=== PATIENT | male | born 1940 | race Caucasian/White ===

== ENCOUNTER → 2018-01-15 | Day surgery (SDC) | payer MEDICARE, BC ==
[2018-01-09 15:25] VITALS: BMI 29.4
[~2018-01-15] MED LIST: HYDROCHLOROTHIAZIDE PO SCH; LIDOCAINE 1% INJ 10MG/ML (20 ML MDV) ONE; METOPROLOL TARTRATE 25 MG TAB PO SCH; PROPOFOL 10 MG/ML 20 ML VIAL IV ONE; RIVAROXABAN 20 MG TAB PO SCH; RIVASTIGMINE TARTRATE 4.5 MG PO SCH; SODIUM CHLORIDE 0.9% 1,000 ML IV SCH; SODIUM CHLORIDE 0.9% 250 ML IV ONE; TAMSULOSIN 0.4 MG CAP.ER.24H PO SCH; VALSARTAN PO SCH; [UNRECOGNIZED DRUG - OTHER] PO SCH; ePHEDrine SULFATE/0.9% NACL/PF 50 MG/5 ML SYRINGE IV ONE
[2018-01-15 07:05] VITALS: TEMP 98.2
[2018-01-15 07:24] VITALS: RESP 16
[2018-01-15 07:29] LABS: Anion Gap 10 mmol/L; Blood Urea Nitrogen 21 mg/dL (9-20); Calcium 9.9 mg/dL (8.4-10.2); Carbon Dioxide 25 mmol/L (22-30); Chloride 105 mmol/L (98-107); Glucose 130 mg/dL (74-99); Potassium 4.4 mmol/L (3.5-5.1); Sodium 140 mmol/L (137-145)
--- NOTE | 2018-01-15 08:03 | ECHOT ---
TRANSESOPHAGEAL ECHOCARDIOGRAM INDICATION: Evaluation of the left atrial appendage. PROCEDURE: After explaining the procedure to the patient, its risks and complications, his blood pressure, heart rate, O2 saturation was monitored. The throat was sprayed with Cetacaine. He received sedation per Anesthesia Department. The probe was introduced into the esophagus without difficulty. Images were obtained. Following that, the probe was removed. There was no immediate complication. FINDINGS: Left atrial size is mildly dilated. Left atrial appendage is normal, left ventricular size and systolic function normal. The aortic valve, mitral valve and tricuspid valve is normal. Descending thoracic aorta appears to be normal. No pericardial effusion was noted. Doppler pulse were obtained and revealed moderate mitral with mild tricuspid regurgitation, mild aortic regurgitation. There was no shunting across the interatrial septum. Impression 1. Normal KATARZYNA 2. Normal LV systolic function 3. Moderate MR, mild TR and AI 4. No shunting. MMODL / IJN: [id number] / MTDD
--- NOTE | 2018-01-15 08:09 | CE ---
CARDIAC ELECTROPHYSIOLOGY REPORT INDICATION: Atrial fibrillation. PROCEDURE: After explaining the procedure to the patient, its risks and the complications, blood pressure, heart rate with suture, O2 saturation was monitored. After explaining the procedure to the patient and obtaining sedated state and performing transesophageal echocardiogram. a synchronized biphasic cardioversion using 200 joules was performed with catholic of normal sinus rhythm. There was no immediate complication. ALIDA / JOSÉN: [id number] /
[2018-01-15 09:17] VITALS: BP 115/66; PULSE 63
--- NOTE | 2018-01-16 08:32 | ECHOT ---
TRANSESOPHAGEAL ECHOCARDIOGRAM ADDENDUM: IMPRESSION: 1. Dilated left atrium with normal appearance left atrial appendage. 2. Normal left ventricular size and systolic function. 3. Moderate mitral with mild tricuspid and aortic regurgitation. 4. No shunting across the interatrial septum. 5. Normal appearance of descending thoracic aorta. 6. No pericardial effusion. MMODL / IJN: [id number] /
== END | disposition home or self-care (01) ==
LOC: CATHCVL 06:25
PROVIDERS: ATTEND Internal Medicine Interventional Cardiology
DX: I48.1 Persistent atrial fibrillation (principal); I08.0 Rheumatic disorders of both mitral and aortic valves; I10 Essential (primary) hypertension; E78.2 Mixed hyperlipidemia; Z79.01 Long term (current) use of anticoagulants; Z79.899 Other long term (current) drug therapy
CPT/HCPCS: 93312; 93320; 93325; 92960; 80048; J2001; J2704

== ENCOUNTER 2018-12-04 05:59 | Day surgery (SDC) | payer MEDICARE, BC ==
[2018-11-30 12:47] VITALS: BMI 29.4
[2018-12-04] MEDS ORDERED: SODIUM CHLORIDE 0.9% 500 ML 500 ML IV ONE (07:09)
[2018-12-04] MEDS ORDERED: PROPOFOL 10 MG/ML 20 ML VIAL IV ONE (07:10)
[2018-12-04] MEDS ORDERED: BENZOCAINE SPRAY 1 CAN MUCOUS MEM ONE (07:14)
[2018-12-04] MEDS ORDERED: SODIUM CHLORIDE 0.9% 1,000 ML IV SCH (07:30)
[2018-12-04 07:39] VITALS: RESP 16
--- NOTE | 2018-12-04 07:45 | CE ---
CARDIAC ELECTROPHYSIOLOGY REPORT CARDIOVERSION PROCEDURE NOTE: INDICATION: Atrial fibrillation. PROCEDURE: After explaining the procedure to the patient, its risks and the complications, after obtaining sedated state and performing transesophageal echocardiogram, a synchronized biphasic cardioversion using 200 joules was performed with zoroastrian of normal sinus rhythm. There was no immediate complication. ALIDA / LIZ: [id number] /
--- NOTE | 2018-12-04 07:45 | ECHOT ---
TRANSESOPHAGEAL ECHOCARDIOGRAM INDICATION: Atrial fibrillation and evaluation left atrial appendage. PROCEDURE: After explaining the procedure to the patient, its risks and complications, his blood pressure, heart rate, O2 saturation was monitored. The throat was sprayed with Cetacaine. He received sedation per Anesthesia Department. The probe was introduced esophagus without difficulty. Images were obtained. Following that, the probe was removed. There was no immediate complication. FINDINGS: The left atrial size is mildly dilated. Left atrial appendage is normal size, systolic function is normal. The aortic valve revealed mild fibrocalcific change with aortic cusp with preserved opening. Mitral valve appears to be normal. Tricuspid valve is normal. Descending thoracic aorta appears to be normal. Contrast bubble study revealed no evidence of shunting across the interatrial septum. No pericardial effusion was noted. Doppler pulse wave and color Doppler obtained revealed moderate mitral with mild tricuspid with trace aortic and pulmonic regurgitation. There was no shunting across the interatrial septum. CONCLUSION: 1. Dilated left atrium, normal appearance left atrial appendage. 2. Normal left ventricular size and systolic function. 3. Moderate mitral and mild tricuspid regurgitation. 4. Trace aortic and pulmonic regurgitation. 5. No shunting across the interatrial septum. 6. Normal appearance of the descending thoracic aorta. MMODL / IJN: [id number] /
[2018-12-04] MEDS: SODIUM CHLORIDE 0.9% 1,000 ML IV SCH ×2 (07:49→07:58)
[2018-12-04] MEDS ORDERED: [UNRECOGNIZED DRUG - OTHER] PO SCH (09:00)
[2018-12-04] MEDS ORDERED: TAMSULOSIN 0.4 MG CAP.ER.24H PO SCH (09:00)
[2018-12-04] MEDS ORDERED: FLECAINIDE 50 MG TAB PO SCH (09:00)
[2018-12-04] MEDS ORDERED: HYDROCHLOROTHIAZIDE PO SCH (09:00)
[2018-12-04] MEDS ORDERED: VALSARTAN PO SCH (09:00)
[2018-12-04] MEDS ORDERED: RIVASTIGMINE TARTRATE 4.5 MG PO SCH (09:00)
[2018-12-04 10:03] VITALS: BP 127/77; PULSE 68
[2018-12-04] MEDS ORDERED: RIVAROXABAN 20 MG TAB PO SCH (21:00)
[2018-12-04] MEDS ORDERED: METOPROLOL TARTRATE 25 MG TAB PO SCH (21:00)
== END 2018-12-04 09:50 | disposition home or self-care (01) ==
LOC: CATHCVL 05:59
PROVIDERS: ATTEND Internal Medicine Interventional Cardiology
DX: I48.1 Persistent atrial fibrillation (principal); I10 Essential (primary) hypertension; E78.2 Mixed hyperlipidemia; I08.0 Rheumatic disorders of both mitral and aortic valves; Z85.828 Personal history of other malignant neoplasm of skin; N42.9 Disorder of prostate, unspecified; G30.9 Alzheimer's disease, unspecified; Z79.01 Long term (current) use of anticoagulants; Z79.899 Other long term (current) drug therapy
CPT/HCPCS: 93312; 93320; 93325; 92960; J2704; 93005

== ENCOUNTER → 2020-01-28 | Outpatient (CLI) | payer MEDICARE, BC ==
[2020-01-28 14:08] LABS: HGB 14.3 gm/dL (13.0-17.5); MCH 32.5 pg (25.0-35.0); MCHC 33.4 g/dL (31.0-37.0); MCV 97.3 fL (80.0-100.0); Mean Platelet Volume 7.3; Platelet Count 172 k/uL (150-450); RBC 4.42 m/uL (4.30-5.90); RDW 12.5 % (11.5-15.5); WBC 5.8 k/uL (3.8-10.6)
[2020-01-28 14:12] LABS: Magnesium 1.8 mg/dL (1.6-2.3)
== END | disposition home or self-care (01) ==
LOC: LABPAT 11:44
PROVIDERS: ATTEND Internal Medicine Interventional Cardiology
DX: Z01.818 Encounter for other preprocedural examination (principal); I48.21 Permanent atrial fibrillation
CPT/HCPCS: 36415; 82565; 83735; 84520; 85027

== ENCOUNTER 2020-02-03 06:02 | Day surgery (SDC) | payer MEDICARE, BC ==
[2020-01-30 09:28] VITALS: BMI 29.4
[~2020-02-03 06:02] MED LIST changes: -HYDROCHLOROTHIAZIDE PO SCH; +LACTATED RINGERS 1,000 ML IV SCH; -LIDOCAINE 1% INJ 10MG/ML (20 ML MDV) ONE; -METOPROLOL TARTRATE 25 MG TAB PO SCH; -PROPOFOL 10 MG/ML 20 ML VIAL IV ONE; -RIVAROXABAN 20 MG TAB PO SCH; -RIVASTIGMINE TARTRATE 4.5 MG PO SCH; -SODIUM CHLORIDE 0.9% 250 ML IV ONE; -TAMSULOSIN 0.4 MG CAP.ER.24H PO SCH; -VALSARTAN PO SCH; -[UNRECOGNIZED DRUG - OTHER] PO SCH; -ePHEDrine SULFATE/0.9% NACL/PF 50 MG/5 ML SYRINGE IV ONE
[2020-02-03 06:32] VITALS: RESP 16; TEMP 98.1
[2020-02-03 06:53] LABS: Potassium 3.8 mmol/L (3.5-5.1)
[2020-02-03] MEDS ORDERED: PROPOFOL 10 MG/ML 20 ML VIAL IV ONE (07:20)
[2020-02-03] MEDS ORDERED: IV FLUID CONTINUATION 1,000 ML IV ONE (07:27)
[2020-02-03] MEDS ORDERED: SODIUM CHLORIDE 0.9% 1,000 ML IV SCH (07:45)
[2020-02-03] MEDS ORDERED: TAMSULOSIN 0.4 MG CAP.ER.24H PO SCH (09:00)
[2020-02-03] MEDS ORDERED: RIVASTIGMINE TARTRATE 4.5 MG PO SCH (09:00)
[2020-02-03] MEDS ORDERED: ATORVASTATIN 10 MG TAB PO SCH (09:00)
[2020-02-03] MEDS ORDERED: FUROSEMIDE 20 MG TAB PO SCH (09:00)
[2020-02-03] MEDS ORDERED: FLECAINIDE 50 MG TAB PO SCH (09:00)
[2020-02-03 09:16] VITALS: BP 115/60; PULSE 59
--- NOTE | 2020-02-03 09:59 | ECHOT ---
TRANSESOPHAGEAL ECHOCARDIOGRAM INDICATIONS: Evaluation left atrial appendage. PROCEDURE: After explaining the procedure to the patient its risks and the complications, his blood pressure, heart rate, O2 saturation was monitored. The throat was sprayed with Cetacaine he received sedation per the anesthesia department. The probe was introduced esophagus without difficulties. Images were obtained. Following that, the probe was removed there was no immediate complication. FINDINGS: Left atrial size is mildly dilated. The left atrial appendage is normal size, systolic function normal. The aortic valve appears to be normal. The mitral valve revealed mild thickening of the mitral valve leaflets. Tricuspid valve is normal. Descending thoracic aorta revealed no evidence of significant atherosclerotic changes. No pericardial effusion was noted. Contrast bubble study revealed no shunting across the interatrial septum. Doppler pulse wave and color Doppler obtained revealed moderate mitral with mild tricuspid regurgitation. There was no shunting by color Doppler study. CONCLUSION: 1. Dilated left atrium with normal appearance of left atrial appendage. 2. Normal size systolic function. 3. Moderate mitral with mild tricuspid regurgitation. 4. No shunting across the interatrial septum. 5. No pericardial effusion. MMODL / IJN: [id number] /
--- NOTE | 2020-02-03 12:32 | CE ---
CARDIAC ELECTROPHYSIOLOGY REPORT CARDIOVERSION PROCEDURE NOTE: INDICATION: Atrial fibrillation. PROCEDURE: After explaining the procedure to the patient, its risks and the complications, his blood pressure, heart rate, O2 saturation were monitored. After performing transesophageal echocardiogram, a synchronized biphasic cardioversion using 200 joules was performed with congregation of normal sinus rhythm. There was no immedicate complication. ALIDA / JOSÉN: [id number] /
[2020-02-03] MEDS ORDERED: METOPROLOL TARTRATE 25 MG TAB PO SCH (21:00)
[2020-02-03] MEDS ORDERED: RIVAROXABAN 20 MG TAB PO SCH (21:00)
== END 2020-02-03 09:25 | disposition home or self-care (01) ==
LOC: CATHCVL 06:02
PROVIDERS: ATTEND Internal Medicine Interventional Cardiology
DX: I08.1 Rheumatic disorders of both mitral and tricuspid valves (principal); I48.19 Other persistent atrial fibrillation; I10 Essential (primary) hypertension; E78.2 Mixed hyperlipidemia; M19.90 Unspecified osteoarthritis, unspecified site; K21.9 Gastro-esophageal reflux disease without esophagitis; Z79.01 Long term (current) use of anticoagulants; Z79.899 Other long term (current) drug therapy; Z87.891 Personal history of nicotine dependence; Z82.49 Family history of ischemic heart disease and other diseases of the circulatory system; Z82.3 Family history of stroke; Z85.828 Personal history of other malignant neoplasm of skin
CPT/HCPCS: 93312; 93320; 93325; 92960; 80051; J2704

== ENCOUNTER 2020-04-07 09:08 | Day surgery (SDC) | payer MEDICARE, BC ==
[2020-04-06 10:18] VITALS: BMI 28.7
[~2020-04-07 09:08] MED LIST changes: -SODIUM CHLORIDE 0.9% 1,000 ML IV SCH
[2020-04-07] MEDS ORDERED: ONDANSETRON 4 MG/2 ML VIAL ONE (09:32)
[2020-04-07 09:46] VITALS: TEMP 99.5
[2020-04-07] MEDS ORDERED: PROPOFOL 10 MG/ML 20 ML VIAL IV ONE (10:18)
[2020-04-07] MEDS ORDERED: LIDOCAINE 1% INJ 10MG/ML (20 ML MDV) ONE (10:18)
[2020-04-07] MEDS ORDERED: IV FLUID CONTINUATION 100 ML IV ONE (10:53)
--- NOTE | 2020-04-07 10:58 | P.PCN ---
Date of Procedure: 04/07/20 Description of Procedure: BRIEF HISTORY: Patient is a 80-year-old male presenting outpatient colonoscopy for positive stool testing. He reports a remote history of colonoscopy approximately 30 years ago. Change in bowel habits. Stool testing which was positive PROCEDURE PERFORMED: Colonoscopy with polypectomy. PREOPERATIVE DIAGNOSIS: Positive stool testing, remote history of screening colonoscopy 30 years ago. ESTIMATED BLOOD LOSS: Minimal. IV sedation per Anesthesia. PROCEDURE: After informed consent was obtained, the patient, was brought into the endoscopy unit. IV sedation was administered by Anesthesia under continuous monitoring. Digital rectal examination was normal. Initially the Olympus CF-190 flexible video colonoscope was then inserted in the rectum, gradually advanced into the cecum without any difficulty. Careful examination was performed as the scope was gradually being withdrawn. Ileocecal valve and the appendiceal orifice were visualized and appeared normal. Prep was excellent. Mucosa of the cecum, ascending colon, transverse colon, descending colon, sigmoid colon, and rectum appeared normal. A few scattered diverticula noted in the sigmoid colon. 5 diminutive polyps measuring 1-2 mm in size removed from the cecum, hepatic flexure, descending colon, sigmoid colon and rectum with cold forcep polypectomy. 2 flat polyps removed with cold snare polypectomy from the ascending colon measuring 6 mm in size and from the rectum measuring 4 mm in si ze. Retroflexion was performed in the rectum and no lesions were seen. The patient tolerated the procedure well. IMPRESSION: To medium-sized polyps removed with cold snare polypectomy from the ascending colon and rectum. 5 diminutive polyps removed cold forceps polypectomy with cold forcep polypectomy. Mild sigmoid diverticulosis. RECOMMENDATIONS: The case was discussed with the patient and his . The patient be discharged home. Okay to resume diet. Okay to resume anticoagulation tomorrow and the rest of his medications today. Await pathology from polypectomies. Recommend repeat colonoscopy in 3 years pending clinical condition and if medically stable at that time.
[2020-04-07 11:29] VITALS: BP 164/72; PULSE 50; RESP 20
== END 2020-04-07 11:34 | disposition home or self-care (01) ==
LOC: ORWHC2ENDO 09:08
PROVIDERS: ATTEND Internal Medicine
DX: D12.0 Benign neoplasm of cecum (principal); D12.2 Benign neoplasm of ascending colon; D12.4 Benign neoplasm of descending colon; D12.8 Benign neoplasm of rectum; K63.5 Polyp of colon; K57.30 Diverticulosis of large intestine without perforation or abscess without bleeding; I25.10 Atherosclerotic heart disease of native coronary artery without angina pectoris; I48.91 Unspecified atrial fibrillation; I10 Essential (primary) hypertension; E78.5 Hyperlipidemia, unspecified; N40.0 Benign prostatic hyperplasia without lower urinary tract symptoms; K21.9 Gastro-esophageal reflux disease without esophagitis; Z79.899 Other long term (current) drug therapy; Z87.891 Personal history of nicotine dependence; Z98.890 Other specified postprocedural states
CPT/HCPCS: 88305; 45380; 45385; J2405; J2001; J2704

== ENCOUNTER 2021-04-05 06:04 | Day surgery (SDC) | payer BC, MEDICARE ==
[2021-04-01 16:02] VITALS: BMI 28.7
[2021-04-05] MEDS ORDERED: SODIUM CHLORIDE 0.9% 1,000 ML IV SCH ×2 (06:05→07:45)
[2021-04-05] MEDS ORDERED: LACTATED RINGERS 1,000 ML IV SCH (06:05)
[2021-04-05] MEDS ORDERED: SODIUM CHLORIDE 0.9% 500 ML 500 ML IV ONE (06:16)
[2021-04-05 06:56] VITALS: TEMP 98.4
[2021-04-05] MEDS ORDERED: LIDOCAINE 1% INJ 10MG/ML (20 ML MDV) ONE (07:15)
[2021-04-05] MEDS ORDERED: PROPOFOL 10 MG/ML 20 ML VIAL IV ONE (07:15)
[2021-04-05] MEDS ORDERED: FAMOTIDINE 10 MG PO PRN (07:36)
[2021-04-05 07:38] LABS: African American GFR (CKD) >90 (>60 ml/min/1.73 sqM); Anion Gap 9 mmol/L; Blood Urea Nitrogen 16 mg/dL (9-20); Calcium 10.2 mg/dL (8.4-10.2); Carbon Dioxide 23 mmol/L (22-30); Chloride 106 mmol/L (98-107); Glucose 140 mg/dL (74-99); Non-African American GFR(CKD) 90 (>60 ml/min/1.73 sqM); Potassium 4.5 mmol/L (3.5-5.1); Sodium 138 mmol/L (137-145)
[2021-04-05 07:47] VITALS: RESP 16
--- NOTE | 2021-04-05 08:00 | PCN ---
PROCEDURE NOTE INDICATION: Atrial fibrillation. PROCEDURE: After explaining the procedure to the patient, risks and the complications, after obtaining transesophageal echocardiogram and obtaining sedated state, a synchronized biphasic cardioversion using 100 joules was performed with holiness of sinus mechanism. There was no immediate complication. ALIDA / LIZ: [id number] /
--- NOTE | 2021-04-05 08:18 | ECHOT ---
TRANSESOPHAGEAL ECHOCARDIOGRAM INDICATION: Evaluation of left atrial appendage. PROCEDURE: After explaining the procedure to the patient, risks and the complications, his blood pressure, heart rate, O2 saturation was monitored. The throat was sprayed with Cetacaine. He received sedation per Anesthesia Department. The probe was introduced in the esophagus without difficulty. Images were obtained. Following that, the probe was removed. There was no immediate complication. FINDINGS: Left atrial size is dilated. Right atrial size is dilated. Left atrial appendage is normal. Left ventricular size and systolic function are normal. The aortic valve revealed mild fibrocalcific changes with preserved opening. Mild thickening of the mitral valve leaflet was noted. Tricuspid valve is normal. Descending and thoracic aorta is normal. Contrast bubble study revealed no shunting across the interatrial septum. There was no pericardial effusion. Doppler pulse wave and color Doppler obtained, revealed mild to moderate mitral with mild tricuspid regurgitation. There was no shunting by color Doppler study. CONCLUSION: 1. Biatrial enlargement with normal appearance of left atrial appendage. 2. Normal left ventricular size and systolic function. 3. Mild to moderate mitral with mild tricuspid regurgitation. 4. No shunting across the interatrial septum. 5. Normal appearance of the descending thoracic aorta. MMODL / IJN: [id number] /
[2021-04-05] MEDS ORDERED: hydrALAZINE HCL 25 MG TAB PO SCH (09:00)
[2021-04-05] MEDS ORDERED: RIVASTIGMINE TARTRATE 4.5 MG PO SCH (09:00)
[2021-04-05] MEDS ORDERED: PRIMIDONE 50 MG TAB PO SCH (09:00)
[2021-04-05] MEDS ORDERED: CANDESARTAN CILEXETIL 32 MG PO SCH (09:00)
[2021-04-05] MEDS ORDERED: FLECAINIDE 50 MG TAB PO SCH (09:00)
[2021-04-05] MEDS ORDERED: NON FORMULARY DRUG (Multivit-Min/Fa/Lycopen/Lutein [Centrum Silver Tablet] 1 EACH Tablet) PO SCH (09:00)
[2021-04-05] MEDS ORDERED: ATORVASTATIN 10 MG TAB PO SCH (09:00)
[2021-04-05] MEDS ORDERED: amLODIPine 10 MG TAB PO SCH (09:00)
[2021-04-05 10:23] VITALS: BP 98/56; PULSE 58
[2021-04-05] MEDS ORDERED: RIVAROXABAN 20 MG TAB PO SCH (18:30)
[2021-04-05] MEDS ORDERED: TAMSULOSIN 0.4 MG CAP.ER.24H PO SCH (21:00)
== END 2021-04-05 09:44 | disposition home or self-care (01) ==
LOC: CATHCVL 06:04
PROVIDERS: ATTEND Internal Medicine Interventional Cardiology
DX: I48.91 Unspecified atrial fibrillation (principal); I07.1 Rheumatic tricuspid insufficiency; Z20.822 Contact with and (suspected) exposure to COVID-19; I25.10 Atherosclerotic heart disease of native coronary artery without angina pectoris; I10 Essential (primary) hypertension; E78.5 Hyperlipidemia, unspecified; K21.9 Gastro-esophageal reflux disease without esophagitis
CPT/HCPCS: 93312; 93320; 93325; 92960; 80048; 87635; J2001; J2704

== ENCOUNTER → 2021-09-16 | Outpatient (CLI) | payer MEDICARE ==
[2021-09-16 13:13] VITALS: BP 169/71; PULSE 55; RESP 18
--- NOTE | 2021-09-16 13:51 | P.CON ---
Consult Note - . Consult date: 09/16/21 Assessment/Plan:: HISTORY OF PRESENT ILLNESS: 81 yr old male with at side as a referral from Dr Gastelum presents today with chronic & severe LBP secondary to DDD, levoscoliosis, spinal stenosis, disc herniations, facet arthropathy and bilateral L2/L3/L4/L5 impingement for evaluation. Patient states lower back pain is 7 out of 10 in intensity, dull, throbbing, achy in the lower aspects of his lumbar spine with radiation of sharp, stabbing pain to the right hip. Pain escalates as high as 10 out of 10 with walking, standing and "anything to do on my feet." Pain is relieved with medications (tramadol, Tylenol), topicals which are ineffective, injections in the past which have been ineffective, ice and heat which has been ineffective, physical therapy in June 2021 which resulted in no improvement, sitting and rest. PMH: aFib, HTN PSH: Denies SH: Negative x 3. and lives with spouse. FH: Non contributory All: NKDA Meds: See list REVIEW OF ORGAN SYSTEMS: CONSTITUTIONAL: No fevers or chills. No recent weight loss. HEENT: No visual acuity loss, eye pain, difficulties with hearing. No nosebleeds. No difficulty swallowing. RESPIRATORY: Denies any troubles with breathing or dyspnea on exertion. CARDIOVASCULAR: Denies any chest pain, palpitations, or recent heart attacks. GASTROINTESTINAL: Denies fatty food intolerance. Has change in bowel habits and gas bloat. GENITOURINARY: Denies any blood in urine. Has increased urinary frequency. NEUROLOGICAL: + numbness and tingling along the distal extremities. No seizure disorders or headaches. MUSCULOSKELETAL: + back pain SKIN: No skin cancer. No rash. PSYCHIATRIC: Denies current depression or suicidal thoughts. ENDOCRINE: Denies current thyroid disorders. Denies any blood sugar glucose intolerance. HEME/LYMPHATIC: Denies any lumps and bumps around the neck. History of deep venous thrombosis. ALLERGY/IMMUNOLOGY: No immunoglobulin therapy. No immune deficiencies. BREAST: Denies current breast lumps, pain or nipple discharge. Physical Examinations : Constitutional : Cooperative , not in acute distress . HEENT: Neck supple. No Lymphadenopathy. Normal thyroid size . Eyes no ptosis , no icterus, no photophobia . Hearing intact. Normal oropharynx. No Thrush. Respiratory : Chest clear to auscultations bilaterally. No wheezing. No rhonchi. Cardiovascular : Regular rate and rhythm , S1 / S2. No S3 . No S4. Gastrointestinal : Abdomen soft. No tenderness. Bowel sounds x 4. No organomegaly . Genitourinary : Deferred. Neurologic : Cranial nerve II to XII intact. No focal neurological deficits. Psychiatric : alert & oriented x 3. Matching mood & appropriate affect. Judgment & insight intact. Lymphatic No Lymphadenopathy. Musculoskeletal : Cervical Spine Motor strength in the deltoid and biceps: Normal right side. Normal Left side Motor strength biceps and the wrist extensors: Normal right side . Normal left side Motor strength in the triceps muscle: Normal right side. Normal left side Deep tendon reflexes: Normal at the biceps. Normal at Brachioradialis. Normal at triceps Cervical facet loading test: positive bilaterally Spurling test: positive bilaterally Neck distraction test: positive bilaterally Gera sign: positive bilaterally Lumbar spine Motor strength lower extremities ,thigh and legs 5/5 Right side , 5/5 Left side Deep tendon reflexes : Normal Knee Jerk. Normal Ankle Jerk Vertebral body tenderness over L2 Lumbar facet Loading Test: positive Right / positive Left Range of motion of the lumbar spine Flexion 30 degrees, extension 10 degrees Straight Leg Raise test: Left/ Right positive at degree Rome test: positive right / positive left. Severe tenderness over the Sacroiliac joint on the Right / Left sides Gaenslen test: positive bilaterally Seated flexion test: positive bilaterally. Imaging: MRI without contrast of the lumbar spine, 06/08/21 reviewed Assessment/ Plan : Lumbar DDD, Lumbar Spondylosis, Lumbar DDD, Levoscoliosis, Lumbar Radiculopathy Recommendation of LESI L1-L2. The need a series of injections, up to 3 within a six-month period, for optimal pain relief. Risks, benefits of procedure discussed and patient verbalized understanding. Denies medical history of diabetes. Admits to Xarelto use. Protocol for discontinuation/ continuation of medications arden procedure discussed. All questions answered. I have spent greater than 50 minutes on patient care today. Dr Franco was available by phone for the evaluation of this patient. The time was used to review the medical records including relevant urine studies and Prescription history (MAPs), review of the available imaging, evaluation and examination of the patient, coordination of care with the medical staff and if applicable referring physicians, as well as creation of the medical record PQRS Measure Charge Sheet Mode of Arrival: Ambulatory - Pain Location Lower Back Non-Pharmacological Interventions: Inactivity, Physical Therapy, Position/Reposition, Sitting, Stretching Pharmacological Interventions: PRN Medication PQRS Narrative: Smoking Status Former smoker Blood Pressure 169/71 Pain Intensity [Lower Back] 7 Scale Used Numeric (1 - 10) Hx Alcohol Use (MH) No Home Medications: Ambulatory Orders Rivastigmine Tartrate [Exelon] 4.5 mg PO BID 03/22/14 Tamsulosin [Flomax] 0.4 mg PO HS 01/09/18 Rivaroxaban [Xarelto] 20 mg PO PC-SUPPER 01/15/18 Flecainide [Tambocor] 50 mg PO Q12HR 11/30/18 Atorvastatin [Lipitor] 10 mg PO DAILY 01/30/20 Furosemide [Lasix] 20 mg PO Q48H 01/30/20 Candesartan Cilexetil [Atacand] 32 mg PO DAILY 04/06/20 Cholecalciferol [Vitamin D3 (25 Mcg = 1000 Iu)] 5,000 unit PO DAILY 04/06/20 Famotidine [Pepcid AC] 10 mg PO DAILY PRN 04/06/20 Multivit-Min/FA/Lycopen/Lutein [Centrum Silver Tablet] 1 each PO DAILY 04/06/20 Primidone [Mysoline] 50 mg PO BID 04/06/20 amLODIPine BESYLATE 10 mg PO DAILY 04/06/20 hydrALAZINE HCL [Apresoline] 25 mg PO BID 04/06/20 Metoprolol Tartrate 50 mg PO HS #0 04/05/21
== END ==
LOC: PNWHC3 12:33
PROVIDERS: ATTEND Specialist
DX: M51.16 Intervertebral disc disorders with radiculopathy, lumbar region (principal); M47.26 Other spondylosis with radiculopathy, lumbar region; M41.20 Other idiopathic scoliosis, site unspecified; Z87.891 Personal history of nicotine dependence
CPT/HCPCS: 99211

== ENCOUNTER 2021-10-19 07:01 | Day surgery (SDC) | payer MEDICARE ==
[2021-10-15 13:48] VITALS: BMI 28.7
[~2021-10-19 07:01] MED LIST changes: +LIDOCAINE 1% (10MG/ML) FOR IV START INTRADERMA PRN
[2021-10-19 07:29] VITALS: TEMP 97.3
[2021-10-19] MEDS ORDERED: IOPAMIDOL M200 10 ML VIAL ONE (07:47)
[2021-10-19] MEDS ORDERED: MIDAZOLAM 2 MG/2 ML VIAL ONE (07:47)
[2021-10-19] MEDS ORDERED: methylPREDNISolone ACETATE 80 MG/ML 1 ML VIAL ONE (07:47)
[2021-10-19] MEDS ORDERED: fentaNYL (PF) 50 MCG/ML 2 ML AMP ONE (07:47)
--- NOTE | 2021-10-19 08:05 | P.PCN ---
Date of Procedure: 10/19/21 Procedure(s) Performed: PREOPERATIVE DIAGNOSIS: 1- Lumbar Degenerative Disc Diseases 2-Lumbar spondylosis with Facet arthropathy without myelopathy 3-lumbar radiculopathy POSTOPERATIVE DIAGNOSIS: Same as preop diagnosis. PROCEDURE 1. Lumbar epidural steroid injection under fluoroscopic guidance at the L1-2 level. (Fluoroscopy imaging was available in radiology department) 2. Lumbar epidurogram. ANESTHESIA: Local with 1% lidocaine 3 ml and , moderate sedation with in travenous Versed 1 mg ,and fentanyle 50 Mcg EBL: Minimal PROCEDURE INDICATION: The patient with low back pain and radiculitis symptoms unresponsive to conservative treatment. Fluoroscopy was used to optimize visualization of the needle placement and to maximize safety. PROCEDURE DESCRIPTION / TECHNIQUE: The patient was seen and identified in the preoperative area. Risks, benefits, complications including but not limited to infections ,bleeding ,allergic reaction to the medications ,nerve damage and not complete pain releife , and alternatives were discussed with the patient. The patient agreed to proceed with the procedure and signed the consent. IV was started, and vital signs were stable. Patient was taken to the OR and time out was completed. The patient was placed in the prone position on procedure table and a pillow was placed under the abdomen to reduce lumbar lordosis. The lumbosacral area was prepped and draped in the usual sterile fashion.ere closely monitored during the procedure. Conscious sedation was used during the procedure to decrease patients anxiety. Vital signs was monitered during the entire procedure. Using anterior-posterior fluoroscopy, the L1-2 interlaminar space was identified and the skin over this site was marked and then infiltrated with 1% lidocaine subcutaneously. Subsequently, a 18-gauge Tuohy epidural needle was inserted and advanced toward the epidural space using the ``Loss of resistance technique and guided by AP and lateral fluoroscopy. The correct needle position in the epidural space was verified with the injection of 2 mL of the water soluble contrast dye Isovue 200 contrast and observing an excellent epidurogram with the epidural spread of the dye, after negative aspiration for blood and CSF and in the absence of paresthesias. Again after negative aspiration, a 6 ml mixture containing 60 mg of Depo-medrol , and 2 ml of preservative free Normal Saline, and 2 ml of preservative free lidocaine 1% solution was injected and a washout of epidurogram was seen. Needle was withdrawn intact, skin was cleansed, and bandages were applied. COMPLICATIONS: None DISPOSITION / PLANS: The patient was placed in a supine position and transferred to the recovery area in a stable condition for observation. There was no evidence of lower extremity motor or sensory deficit after the procedure. Patient was discharged from the recovery room after meeting discharge criteria. Home discharge instructions were given to the patient by the staff. The patient was reexamined prior to discharge. The patient will schedule a follow up in the clinic in 2-4 weeks. Patient use Xarelto,(last dose was more than 72 hours ago).
[2021-10-19] MEDS ORDERED: LACTATED RINGERS 1,000 ML IV ONE (08:06)
[2021-10-19] MEDS ORDERED: IV FLUID CONTINUATION 1,000 ML IV ONE (08:08)
[2021-10-19 08:12] VITALS: RESP 18
[2021-10-19 08:34] VITALS: BP 97/57; PULSE 60
--- NOTE | 2021-10-19 10:28 | FL ---
EXAMINATION TYPE: FL guided pain mgmt statistic DATE OF EXAM: 10/19/2021 FLUOROSCOPY Fluoroscopy time of 2 seconds was used during lumbar epidural steroid injection. 1 image/s document/ s the procedure.
== END 2021-10-19 08:46 | disposition home or self-care (01) ==
LOC: ORPAIN 07:01
PROVIDERS: ATTEND Specialist
DX: M47.816 Spondylosis without myelopathy or radiculopathy, lumbar region (principal)
CPT/HCPCS: 62323; J2250; J1040; J3010; Q9966; 99152

== ENCOUNTER → 2021-11-04 | Outpatient (CLI) | payer MEDICARE ==
--- NOTE | 2021-11-04 12:55 | P.PAINPG ---
PQRS Measure Charge Sheet Comment: A 81 yr old male with a history of severe and chronic low back pain secondary to lumbar degenerative disc diseases and lumbar spondylosis with facet arthropathy presents today for evaluation status post LESI L1-L2 #1. He states he expressed 85% pain relief status post procedure. The stabbing sensation he experienced radiating is gone. Pain level is currently at 3 out of 10 in intensity, constant, dull, achy pain in the lumbar spine with radiation of pain above of the right hip. Pain is provoked by standing, lifting and bending. Pain is alleviated with PT in Jun 2021 but stopped as it worsened pain, heat, ice, medications (Tylenol OTC), sitting and rest. Interventional pain procedures completed include LESI L1-L2 1 Patient is currently on Tylenol OTC Patient denies any side effects of the medication(s), denies excessive drowsiness or sleepiness, denies suicidal ideation and reports that the current pain medication is helping to control the pain and improve activities of daily living. Patient denies any motor or sensory deficits. Patient denies any fever or night sweats, denies any change in the bowel movements or urination. Physical Examination: -Constitutional: Cooperative. Not in acute distress . -HEENT: Neck is supple. No lymphadenopathy. No thyromegaly. Normal thyroid size. Eyes: No ptosis , no icterus, no photophobia. ENT: No auditory deficits. Normal oropharynx. No Thrush. - Respiratory: Chest clear to auscultations bilaterally. No wheezing. No rhonchi. - Cardiovascular: Regular rate and rhythm. S1 / S2 , no S3 , no S4. - Gastrointestinal: Abdomen soft no tenderness. Bowel sounds positive in all four quadrants. No organomegaly. - Genitourinary: Deferred. - Neurologic: Cranial nerve II to XII intact. No focal neurological deficits. - Psychatric: Alert & oriented x 3. Matching mood & appropriate affect. Judgm ent and insight intact. - Lymphatic: No Lymphadenopathy. - Musculoskeletal: Cervical spine: Muscle bulk/ tone/ strength in the bilateral upper extremities normal Vertebral body tenderness to palpation over Facet loading test positive Thoracic spine Muscle bulk / tone/ strength in the bilateral paraspinal muscles normal Vertebral body tender to palpation over Facet loading test positive Lumbar spine: Motor bulk/ tone/ strength lower extremities , thigh and legs : 5/5 Deep tendon reflexes : Normal Knee Jerk. Normal Ankle Jerk . Vertebral body tenderness to palpation over L1, L2 Lumbar Facet Loading Test positive Straight Leg Raise: positive at 30 degrees right side/ left side Gaenslen's Test positive Sacral spine : Severe tenderness over the Sacroiliac joint: right side / left side Range of motion: Flexion of the lumbar spine <60 degrees Range of motion: Extension of the lumbar spine <20 degrees Gaenslen's Test positive Eyad's Test positive Rome test: positive right side / left side Thigh Thrust Test Sacral Thrust Test Assessment and plan: Chronic low back pain secondary to lumbar degenerative disc disease , lumbar spondylosis with facet arthropathy without myelopathy Recommendation of LESI L1-L2 #2. Patient exhibited substantial pain relief with prior to procedure but feels the effects are slowly starting to decrease. Risks, benefits of procedure discussed and pt verbalized understand ing. Denies anticoagulant use or medical history of diabetes. All patient questions answered MAPS reviewed and it was appropriate. I have spent 31 minutes on patient care today. Dr Franco was available by phone for the evaluation of this patient. The time was used to review the medical records including relevant urine studies and Prescription history (MAPs), review of the available imaging, evaluation and examination of the patient, coordination of care with the medical staff and if applicable referring physicians, as well as creation of the medical record PQRS Narrative: Smoking Status Former smoker Hx Alcohol Use (MH) No Home Medications: Ambulatory Orders Rivastigmine Tartrate [Exelon] 4.5 mg PO BID 03/22/14 Tamsulosin [Flomax] 0.4 mg PO HS 01/09/18 Rivaroxaban [Xarelto] 20 mg PO PC-SUPPER 01/15/18 Flecainide [Tambocor] 50 mg PO Q12HR 11/30/18 Atorvastatin [Lipitor] 10 mg PO DAILY 01/30/20 Furosemide [Lasix] 20 mg PO DAILY PRN 01/30/20 Candesartan Cilexetil [Atacand] 32 mg PO DAILY 04/06/20 Cholecalciferol [Vitamin D3 (25 Mcg = 1000 Iu)] 2,000 unit PO DAILY 04/06/20 Famotidine [Pepcid AC] 10 mg PO DAILY PRN 04/06/20 Multivit-Min/FA/Lycopen/Lutein [Centrum Silver Tablet] 1 each PO DAILY 04/06/20 Primidone [Mysoline] 50 mg PO BID PRN 04/06/20 amLODIPine BESYLATE 10 mg PO DAILY 04/06/20 hydrALAZINE HCL [Apresoline] 25 mg PO BID 04/06/20 Metoprolol Tartrate 50 mg PO HS #0 04/05/21 Gabapentin [Neurontin] 600 mg PO TID 10/15/21 HYDROcodone/APAP 10-325MG [[place] 10-325] 1 tab PO Q6HR PRN 10/15/21 Controlled Substance Measures - Controlled Substance Measures Is patient prescribed a controlled substance at discharge?: No
[2021-11-04 12:57] VITALS: BP 152/79; PULSE 69; RESP 18; TEMP 98.1
== END ==
LOC: PNWHC3 12:27
PROVIDERS: ATTEND Specialist
DX: M51.36 Other intervertebral disc degeneration, lumbar region (principal); M47.816 Spondylosis without myelopathy or radiculopathy, lumbar region; G89.29 Other chronic pain; Z87.891 Personal history of nicotine dependence
CPT/HCPCS: 99211

== ENCOUNTER 2021-12-14 09:51 | Day surgery (SDC) | payer MEDICARE ==
[2021-12-14 10:36] VITALS: RESP 18; TEMP 97.4
[2021-12-14] MEDS ORDERED: methylPREDNISolone ACETATE 80 MG/ML 1 ML VIAL ONE (10:55)
[2021-12-14] MEDS ORDERED: IOPAMIDOL M200 10 ML VIAL ONE (10:55)
[2021-12-14] MEDS ORDERED: fentaNYL (PF) 50 MCG/ML 2 ML AMP ONE (10:55)
[2021-12-14] MEDS ORDERED: MIDAZOLAM 2 MG/2 ML VIAL ONE (10:55)
--- NOTE | 2021-12-14 11:03 | P.PCN ---
Date of Procedure: 12/14/21 Procedure(s) Performed: PREOPERATIVE DIAGNOSIS: 1- Lumbar Degenerative Disc Diseases 2-Lumbar spondylosis with Facet arthropathy without myelopathy 3-lumbar radiculopathy POSTOPERATIVE DIAGNOSIS: Same as preop diagnosis. PROCEDURE 1. Lumbar epidural steroid injection under fluoroscopic guidance at the L1-2 level. (Fluoroscopy imaging was available in radiology department) 2. Lumbar epidurogram. ANESTHESIA: Local with 1% lidocaine 3 ml and , moderate sedation with in travenous Versed 1 mg ,and fentanyle 50 Mcg EBL: Minimal PROCEDURE INDICATION: The patient with low back pain and radiculitis symptoms unresponsive to conservative treatment. Fluoroscopy was used to optimize visualization of the needle placement and to maximize safety. PROCEDURE DESCRIPTION / TECHNIQUE: The patient was seen and identified in the preoperative area. Risks, benefits, complications including but not limited to infections ,bleeding ,allergic reaction to the medications ,nerve damage and not complete pain releife , and alternatives were discussed with the patient. The patient agreed to proceed with the procedure and signed the consent. IV was started, and vital signs were stable. Patient was taken to the OR and time out was completed. The patient was placed in the prone position on procedure table and a pillow was placed under the abdomen to reduce lumbar lordosis. The lumbosacral area was prepped and draped in the usual sterile fashion.ere closely monitored during the procedure. Conscious sedation was used during the procedure to decrease patients anxiety. Vital signs was monitered during the entire procedure. Using anterior-posterior fluoroscopy, the L1-2 interlaminar space was identified and the skin over this site was marked and then infiltrated with 1% lidocaine subcutaneously. Subsequently, a 18-gauge Tuohy epidural needle was inserted and advanced toward the epidural space using the ``Loss of resistance technique and guided by AP and lateral fluoroscopy. The correct needle position in the epidural space was verified with the injection of 2 mL of the water soluble contrast dye Isovue 200 contrast and observing an excellent epidurogram with the epidural spread of the dye, after negative aspiration for blood and CSF and in the absence of paresthesias. Again after negative aspiration, a 6 ml mixture containing 60 mg of Depo-medrol , and 2 ml of preservative free Normal Saline, and 2 ml of preservative free lidocaine 1% solution was injected and a washout of epidurogram was seen. Needle was withdrawn intact, skin was cleansed, and bandages were applied. COMPLICATIONS: None DISPOSITION / PLANS: The patient was placed in a supine position and transferred to the recovery area in a stable condition for observation. There was no evidence of lower extremity motor or sensory deficit after the procedure. Patient was discharged from the recovery room after meeting discharge criteria. Home discharge instructions were given to the patient by the staff. The patient was reexamined prior to discharge. The patient will schedule a follow up in the clinic in 2-4 weeks. Patient use Xarelto,(last dose was more than 72 hours ago).
[2021-12-14 11:15] VITALS: PULSE 70
[2021-12-14] MEDS ORDERED: IV FLUID CONTINUATION 1,000 ML IV ONE (11:16)
--- NOTE | 2021-12-14 11:25 | FL ---
EXAMINATION TYPE: FL guided pain mgmt statistic DATE OF EXAM: 12/14/2021 HISTORY: Fluoroscopy time 1 seconds of fluoroscopy provided. IMPRESSION: 1. Fluoroscopy time.
[2021-12-14 11:26] VITALS: BP 113/69
== END 2021-12-14 11:42 | disposition home or self-care (01) ==
LOC: ORPAIN 09:51
PROVIDERS: ATTEND Specialist
DX: M51.16 Intervertebral disc disorders with radiculopathy, lumbar region (principal); M47.26 Other spondylosis with radiculopathy, lumbar region; I25.10 Atherosclerotic heart disease of native coronary artery without angina pectoris; Z79.01 Long term (current) use of anticoagulants; Z79.899 Other long term (current) drug therapy; Z87.891 Personal history of nicotine dependence; Z80.3 Family history of malignant neoplasm of breast; Z80.42 Family history of malignant neoplasm of prostate
CPT/HCPCS: 62323; J2250; J1040; J3010; Q9966

== ENCOUNTER → 2022-01-05 | Outpatient (CLI) | payer MEDICARE ==
[2022-01-05 11:12] VITALS: BP 157/78; PULSE 65; RESP 18; TEMP 97.6
--- NOTE | 2022-01-05 14:46 | P.PAINPG ---
Objective - Vital Signs Vital signs: Vital Signs Temp 97.6 F 01/05/22 11:07 Pulse 65 01/05/22 11:07 Resp 18 01/05/22 11:07 BP 157/78 01/05/22 11:07 Pulse Ox 97 01/05/22 11:07 FiO2 PQRS Measure Charge Sheet Mode of Arrival: Ambulatory Comment: A 81 yr old male w at side with a history of severe and chronic low back pain secondary to lumbar degenerative disc diseases and lumbar spondylosis with facet arthropathy presents today for an evaluation s/p LESI L1-L2 #2. Pt states he received 95% pain relief x 3 weeks s/p procedure. Pain level is currently at 0/10 in intensity. Pain is provoked by standing & walking for periods of 20 min or more. Pain is alleviated with injections, home stretching regimen, repositioning and rest. Interventional pain procedures completed include LESI L1-L2 x 2 Patient is currently on DENIES Patient denies any side effects of the medication(s), denies excessive drowsiness or sleepiness, denies suicidal ideation and reports that the current pain medication is helping to control the pain and improve activities of daily living. Patient denies any motor or sensory deficits. Patient denies any fever or night sweats, denies any change in the bowel movements or urination. Physical Examination: -Constitutional: Cooperative. Not in acute distress . - Neurologic: Cranial nerve II to XII intact. No focal neurological deficits. - Psychatric: Alert & oriented x 3. Matching mood & appropriate affect. Judgment and insight intact. - Musculoskeletal: Cervical spine: Muscle bulk/ tone/ strength in the bilateral upper extremities normal Vertebral body tenderness to palpation over Spurling test positive Distraction test positive Facet loading test positive Thoracic spine Muscle bulk / tone/ strength in the bilateral paraspinal muscles normal Vertebral body tender to palpation over Facet loading test positive Lumbar spine: Motor bulk/ tone/ strength lower extremities , thigh and legs : 5/5 Deep tendon reflexes : Normal Knee Jerk. Normal Ankle Jerk . Vertebral body tenderness to palpation over L2 Lumbar Facet Loading Test positive Straight Leg Raise: positive at 30 degrees right side/ left side Gaenslen's Test positive Sacral spine : Severe tenderness over the Sacroiliac joint: right side / left side Range of motion: Flexion of the lumbar spine <60 degrees Range of motion: Extension of the lumbar spine <20 degrees Gaenslen's Test positive Eyad's Test positive Rome test: positive right side / left side Thigh Thrust Test Sacral Thrust Test Assessment and plan: Chronic low back pain secondary to lumbar degenerative disc disease , lumbar spondylosis with facet arthropathy without myelopathy Pt received sufficient and satisfactory pain relief s/p procedure. He will manage provoked pain with home pain mgmt modalities and may return to our clinic on an as needed basis. All patient questions answered MAPS reviewed and it was appropriate. I have spent less than 30 minutes on patient care today. Dr Franco was available by phone for the evaluation of this patient. The time was used to review the medical records including relevant urine studies and Prescription history (MAPs), review of the available imaging, evaluation and examination of the patient, coordination of care with the medical staff and if applicable referring physicians, as well as creation of the medical record - Pain Location Back Non-Pharmacological Interventions: Inactivity, Position/Reposition, Relaxation Technique Pharmacological Interventions: Epidural PQRS Narrative: Smoking Status Former smoker Blood Pressure 157/78 Pain Intensity [Back] 1 Hx Alcohol Use (MH) No Home Medications: Ambulatory Orders Rivastigmine Tartrate [Exelon] 4.5 mg PO BID 03/22/14 Tamsulosin [Flomax] 0.4 mg PO HS 01/09/18 Rivaroxaban [Xarelto] 20 mg PO PC-SUPPER 01/15/18 Flecainide [Tambocor] 50 mg PO Q12HR 11/30/18 Atorvastatin [Lipitor] 10 mg PO DAILY 01/30/20 Furosemide [Lasix] 20 mg PO DAILY PRN 01/30/20 Candesartan Cilexetil [Atacand] 32 mg PO DAILY 04/06/20 Cholecalciferol [Vitamin D3 (25 Mcg = 1000 Iu)] 2,000 unit PO DAILY 04/06/20 Famotidine [Pepcid AC] 10 mg PO DAILY PRN 04/06/20 Multivit-Min/FA/Lycopen/Lutein [Centrum Silver Tablet] 1 each PO DAILY 04/06/20 Primidone [Mysoline] 50 mg PO BID PRN 04/06/20 amLODIPine BESYLATE 10 mg PO DAILY 04/06/20 hydrALAZINE HCL [Apresoline] 25 mg PO BID 04/06/20 Metoprolol Tartrate 50 mg PO HS #0 04/05/21 Controlled Substance Measures - Controlled Substance Measures Is patient prescribed a controlled substance at discharge?: No
== END ==
LOC: PNWHC3 10:59
PROVIDERS: ATTEND Specialist
DX: M47.816 Spondylosis without myelopathy or radiculopathy, lumbar region (principal); G89.29 Other chronic pain; M51.36 Other intervertebral disc degeneration, lumbar region; Z87.891 Personal history of nicotine dependence
CPT/HCPCS: 99211

== ENCOUNTER → 2022-05-02 | Outpatient (CLI) | payer MEDICARE ==
[2022-05-02 12:35] VITALS: BP 175/81; PULSE 66; RESP 16; TEMP 97.8
--- NOTE | 2022-05-04 07:40 | P.PAINPG ---
PQRS Measure Charge Sheet Comment: A 82 yr old male w at side with a history of severe and chronic LBP secondary to lumbar DDD and spondylosis with facet arthropathy without myelopathy whom has had ESIs L1-L2 x2 presents today for LBP evaluation. Pt states he experienced 90% pain relief x 2 mo s/p procedure. Pain level is at 9 /10 in intensity, constant, localized in the R lower lumbar spine, stabbing in character w shooting towards the R anterior hip. Pain is provoked by bending and walking/ standing for periods of 30 min or more. Pain is alleviated with PT in Feb 2022, home exercise regimen as tolerated, medications, injections, repositioning and rest. Interventional pain procedures completed include PAULO L1-L2 x2 Patient is currently on Neurontin, Tylenol OTC Patient denies any side effects of the medication(s), denies excessive drowsiness or sleepiness, denies suicidal ideation and reports that the current pain medication is helping to control the pain and improve activities of daily living. Patient denies any motor or sensory deficits. Patient denies any fever or night sweats, denies any change in the bowel movements or urination. Physical Examination: -Constitutional: Cooperative. Not in acute distress . - Neurologic: Cranial nerve II to XII intact. No focal neurological deficits. - Psychatric: Alert & oriented x 3. Matching mood & appropriate affect. Judgment and insight intact. - Musculoskeletal: Cervical spine: Muscle bulk/ tone/ strength in the bilateral upper extremities normal Vertebral body tenderness to palpation over Spurling test positive Distraction test positive Facet loading test positive Thoracic spine Muscle bulk / tone/ strength in the bilateral paraspinal muscles normal Vertebral body tender to palpation over Facet loading test positive Lumbar spine: Motor bulk/ tone/ strength lower extremities , thigh and legs : 5/5 Deep tendon reflexes : Normal Knee Jerk. Normal Ankle Jerk . Vertebral body tenderness to palpation over L1 Lumbar Facet Loading Test positive Straight Leg Raise: positive at 30 degrees right side/ left side Gaenslen's Test positive Sacral spine : Severe tenderness over the Sacroiliac joint: right side / left side Range of motion: Flexion of the lumbar spine <60 degrees Range of motion: Extension of the lumbar spine <20 degrees Gaenslen's Test positive Rome test: positive right side / left side Thigh Thrust Test Sacral Thrust Test Assessment and plan: Chronic low back pain secondary to lumbar degenerative disc disease, spondylosis with facet arthropathy without myelopathy Recommendation of R paramedian PAULO L1-L2. May need a series, up to 4 within a 12 mo period, for optimal pain relief. Risks, benefits of procedure discussed and pt verbalized understanding. Admits to anticoagulant use or medical history of diabetes. Protocol for discontinuation/ continuatin of medications arden procedure discussed. All patient questions answered I have spent less than 30 minutes on patient care today. Dr Franco was available by phone for the evaluation of this patient. The time was used to review the medical records including relevant urine studies and Prescription history (MAPs), review of the available imaging, evaluation and examination of the patient, coordination of care with the medical staff and if applicable referring physicians, as well as creation of the medical record PQRS Narrative: Smoking Status Former smoker Hx Alcohol Use (MH) No Home Medications: Ambulatory Orders Rivastigmine Tartrate [Exelon] 4.5 mg PO BID 03/22/14 Tamsulosin [Flomax] 0.4 mg PO HS 01/09/18 Rivaroxaban [Xarelto] 20 mg PO PC-SUPPER 01/15/18 Flecainide [Tambocor] 50 mg PO Q12HR 11/30/18 Atorvastatin [Lipitor] 10 mg PO DAILY 01/30/20 Furosemide [Lasix] 20 mg PO DAILY PRN 01/30/20 Candesartan Cilexetil [Atacand] 32 mg PO DAILY 04/06/20 Cholecalciferol [Vitamin D3 (25 Mcg = 1000 Iu)] 2,000 unit PO DAILY 04/06/20 Famotidine [Pepcid AC] 10 mg PO DAILY PRN 04/06/20 Multivit-Min/FA/Lycopen/Lutein [Centrum Silver Tablet] 1 each PO DAILY 04/06/20 Primidone [Mysoline] 50 mg PO BID PRN 04/06/20 amLODIPine BESYLATE 10 mg PO DAILY 04/06/20 hydrALAZINE HCL [Apresoline] 25 mg PO BID 04/06/20 Metoprolol Tartrate 50 mg PO HS #0 04/05/21 Gabapentin 600 mg PO TID 05/02/22 Controlled Substance Measures - Controlled Substance Measures Is patient prescribed a controlled substance at discharge?: No
== END ==
LOC: PNWHC3 12:02
PROVIDERS: ATTEND Specialist
DX: M47.816 Spondylosis without myelopathy or radiculopathy, lumbar region (principal); M51.36 Other intervertebral disc degeneration, lumbar region; Z87.891 Personal history of nicotine dependence; Z79.01 Long term (current) use of anticoagulants
CPT/HCPCS: 99211

== ENCOUNTER 2022-06-15 05:48 | Day surgery (SDC) | payer MEDICARE ==
[2022-06-15 06:41] VITALS: RESP 16; TEMP 97.4
[2022-06-15] MEDS ORDERED: LACTATED RINGERS 1,000 ML IV ONE (06:41)
[2022-06-15] MEDS ORDERED: PROPOFOL 10 MG/ML 20 ML VIAL IV ONE (07:10)
[2022-06-15] MEDS ORDERED: BENZOCAINE SPRAY 1 CAN TOPICAL ONE (07:16)
[2022-06-15] MEDS ORDERED: SODIUM CHLORIDE 0.9% 1,000 ML IV SCH (07:30)
--- NOTE | 2022-06-15 07:36 | P.PCN ---
Date of Procedure: 06/15/22 Description of Procedure: Indication: Atrial fibrillation Procedure Description: After explaining the procedure to the patient, it's risk and complications, blood pressure, heart rate and O2 saturation were monitored. The throat was sprayed with Cetacaine. Patient received sedation per anesthesia department. The probe was introduced into the esophagus without difficulty. Images were obtained. Following that, the probe was removed. There was no immediate complication. Findings: Left atrial size is mildly dilated, left ventricular size and systolic function are normal. The aortic valve revealed mild fibrocalcific changes. Mitral valve appears to be normal. Tricuspid and pulmonic valves are normal. Left atrial appendage is normal. Descending thoracic aorta revealed mild atherosclerotic changes. No pericardial effusion was noted. Contrast bubble study revealed no shunting across the intra-atrial septum. Doppler: Pulse wave and color Doppler were obtained, and revealed mild mitral and tricuspid regurgitation with trace to mild aortic regurgitation. There was no shunting across the intra-atrial septum. Conclusion: 1. Mildly dilated left atrium with normal appearance of the left atrial appendage 2. Normal ventricle size and systolic function 3. Mild mitral and tricuspid regurgitation with trace pulmonic regurgitation 4. And no shunting across the intra-atrial septum 5. No pericardial effusion Cardioversion: Indication atrial fibrillation After obtaining sedated state and performing transesophageal echocardiogram and synchronized biphasic cardioversion using 120 J was performed with confucianist of sinus mechanism, there was no immediate complications.
[2022-06-15 08:00] LABS: African American GFR (CKD) >90 (>60 ml/min/1.73 sqM); Anion Gap 6 mmol/L; Blood Urea Nitrogen 16 mg/dL (9-20); Calcium 9.2 mg/dL (8.4-10.2); Carbon Dioxide 27 mmol/L (22-30); Chloride 109 mmol/L (98-107); Glucose 127 mg/dL (74-99); Non-African American GFR(CKD) 84 (>60 ml/min/1.73 sqM); Potassium 4.2 mmol/L (3.5-5.1); Sodium 142 mmol/L (137-145)
[2022-06-15 08:56] VITALS: BP 108/68; PULSE 66
[2022-06-15] MEDS ORDERED: RIVASTIGMINE TARTRATE 4.5 MG PO SCH (09:00)
[2022-06-15] MEDS ORDERED: amLODIPine 10 MG TAB PO SCH (09:00)
[2022-06-15] MEDS ORDERED: NON FORMULARY DRUG (Cholecalciferol 1,000 UNIT Tab) PO SCH (09:00)
[2022-06-15] MEDS ORDERED: ATORVASTATIN 10 MG TAB PO SCH (09:00)
[2022-06-15] MEDS ORDERED: RIVAROXABAN 20 MG TAB PO SCH (18:30)
[2022-06-15] MEDS ORDERED: AMIODARONE 200 MG TAB PO SCH (21:00)
[2022-06-15] MEDS ORDERED: METOPROLOL TARTRATE 50 MG TAB PO SCH (21:00)
[2022-06-15] MEDS ORDERED: TAMSULOSIN 0.4 MG CAP.ER.24H PO SCH (21:00)
[2022-06-16] MEDS ORDERED: LOSARTAN 50 MG TAB PO SCH (09:00)
== END 2022-06-15 09:16 | disposition home or self-care (01) ==
LOC: CATHCVL 05:48
PROVIDERS: ATTEND Internal Medicine Interventional Cardiology
DX: I48.11 Longstanding persistent atrial fibrillation (principal); Z87.891 Personal history of nicotine dependence; I25.10 Atherosclerotic heart disease of native coronary artery without angina pectoris; E78.5 Hyperlipidemia, unspecified; I10 Essential (primary) hypertension; M48.00 Spinal stenosis, site unspecified; K21.9 Gastro-esophageal reflux disease without esophagitis; Z79.899 Other long term (current) drug therapy; Z79.01 Long term (current) use of anticoagulants
CPT/HCPCS: 93312; 93320; 93005; 93325; 92960; 80048; J2704

== ENCOUNTER 2022-06-21 09:31 | Day surgery (SDC) | payer MEDICARE ==
[2022-06-21 10:12] VITALS: TEMP 97.6
[2022-06-21] MEDS ORDERED: LACTATED RINGERS 1,000 ML IV ONE (10:12)
[2022-06-21] MEDS ORDERED: MIDAZOLAM 2 MG/2 ML VIAL ONE (10:44)
[2022-06-21] MEDS ORDERED: methylPREDNISolone ACETATE 40 MG/ML 1 ML VIAL ONE (10:44)
[2022-06-21] MEDS ORDERED: IOPAMIDOL M200 10 ML VIAL ONE (10:44)
[2022-06-21] MEDS ORDERED: fentaNYL (PF) 50 MCG/ML 2 ML AMP ONE (10:44)
--- NOTE | 2022-06-21 10:58 | P.PCN ---
Date of Procedure: 06/21/22 Procedure(s) Performed: PREOPERATIVE DIAGNOSIS: 1- Lumbar Degenerative Disc Diseases 2-Lumbar spondylosis with Facet arthropathy without myelopathy 3-lumbar radiculopathy POSTOPERATIVE DIAGNOSIS: Same as preop diagnosis. PROCEDURE 1. Lumbar epidural steroid injection under fluoroscopic guidance at the L1-2 level. (Fluoroscopy imaging was available in radiology department) 2. Lumbar epidurogram. ANESTHESIA: Local with 1% lidocaine 3 ml and , moderate sedation with intravenous Versed 1 mg ,and fentanyle 50 Mcg Sedation start time 10:48. end time 10:56 EBL: Minimal PROCEDURE INDICATION: The patient with low back pain and radiculitis symptoms un responsive to conservative treatment. Fluoroscopy was used to optimize visualization of the needle placement and to maximize safety. PROCEDURE DESCRIPTION / TECHNIQUE: The patient was seen and identified in the preoperative area. Risks, benefits, complications including but not limited to infections ,bleeding ,allergic reaction to the medications ,nerve damage and not complete pain releife , and alternatives were discussed with the patient. The patient agreed to proceed with the procedure and signed the consent. IV was started, and vital signs were stable. Patient was taken to the OR and time out was completed. The patient was placed in the prone position on procedure table and a pillow was placed under the abdomen to reduce lumbar lordosis. The lumbosacral area was prepped and draped in the usual sterile fashion.ere closely monitored during the procedure. Conscious sedation was used during the procedure to decrease patients anxiety. Vital signs was monitered during the entire procedure. Using anterior-posterior fluoroscopy, the L1-2 interlaminar space was identified and the skin over this site was marked and then infiltrated with 1% lidocaine subcutaneously. Subsequently, a 18-gauge Tuohy epidural needle was inserted and advanced toward the epidural space using the ``Loss of resistance technique and guided by AP and lateral fluoroscopy. The correct needle position in the epidural space was verified with the injection of 2 mL of the water soluble contrast dye Isovue 200 contrast and observing an excellent epidurogram with the epidural spread of the dye, after negative aspiration for blood and CSF and in the absence of paresthesias. Again after negative aspiration, a 6 ml mixture containing 40 mg of Depo-medrol , and 2 ml of preservative free Normal Saline, and 2 ml of preservative free lidocaine 1% solution was injected and a washout of epidurogram was seen. Needle was withdrawn intact, skin was cleansed, and bandages were applied. COMPLICATIONS: None DISPOSITION / PLANS: The patient was placed in a supine position and transferred to the recovery area in a stable condition for observation. There was no evidence of lower extremity motor or sensory deficit after the procedure. Patient was discharged from the recovery room after meeting discharge criteria. Home discharge instructions were given to the patient by the staff. The patient was reexamined prior to discharge. The patient will schedule a follow up in the clinic in 2-4 weeks. Patient use Xarelto,(last dose was more than 72 hours ago).
[2022-06-21] MEDS ORDERED: IV FLUID CONTINUATION 700 ML IV ONE (11:04)
[2022-06-21 11:08] VITALS: RESP 16
--- NOTE | 2022-06-21 11:08 | FL ---
Intraoperative/procedural fluoroscopic services were provided for lumbar epidural steroid injection. Total fluoroscopy time is 1 second with a total of 1 submitted image to PACS. Please see the operativ e note for further details.
[2022-06-21 11:21] VITALS: BP 133/67; PULSE 56
== END 2022-06-21 11:40 | disposition home or self-care (01) ==
LOC: ORPAIN 09:31
PROVIDERS: ATTEND Specialist
DX: M51.16 Intervertebral disc disorders with radiculopathy, lumbar region (principal); M47.26 Other spondylosis with radiculopathy, lumbar region
CPT/HCPCS: 62323; J2250; J1030; J3010; Q9966

== ENCOUNTER → 2023-11-02 | Outpatient (CLI) | payer MEDICARE ==
[2023-11-02 12:51] VITALS: BP 175/74; PULSE 50; RESP 16
--- NOTE | 2023-11-02 13:31 | P.PAINPG ---
PQRS Measure Charge Sheet Comment: A 83 yr old male w at side with a history of severe and chronic LBP secondary to lumbar DDD and spondylosis with facet arthropathy without myelopathy presents today for evaluation. Pain level is provoked at 8 /10 in intensity, constant, localized in the lumbar spine, predominantly axial, dull character w occasional radiation of pain towards the R buttock. Pain is provoked by lifting. Pain is alleviated with PT x 6 wks which ended in Jul 2022, physician guided stretches every morning since Jul 2022, injections, OTC medications, repositioning and rest. Oswestry axial pain score of 26. Interventional pain procedures completed include PAULO L1-L2 x3 Patient is currently on Tyl Patient denies any side effects of the medication(s), denies excessive drowsiness or sleepiness, denies suicidal ideation and reports that the current pain medication is helping to control the pain and improve activities of daily living. Patient denies any motor or sensory deficits. Patient denies any fever or night sweats, denies any change in the bowel movements or urination. Physical Examination: -Constitutional: Cooperative. Not in acute distress . - Neurologic: Cranial nerve II to XII intact. No focal neurological deficits. - Psychatric: Alert & oriented x 3. Matching mood & appropriate affect. Judgment and insight intact. - Musculoskeletal: Cervical spine: Muscle bulk/ tone/ strength in the bilateral upper extremities normal Vertebral body tenderness to palpation over Spurling test positive Distraction test positive Facet loading test positive Thoracic spine Muscle bulk / tone/ strength in the bilateral paraspinal muscles normal Vertebral body tender to palpation over Facet loading test positive Lumbar spine: Motor bulk/ tone/ strength lower extremities , thigh and legs : 5/5 Deep tendon reflexes : Normal Knee Jerk. Normal Ankle Jerk . Vertebral body tenderness to palpation over L2 Buchanan test positive BL L1-L2 Lumbar Facet Loading Test positive Straight Leg Raise: positive at 30 degrees right side/ left side Gaenslen's Test positive Sacral spine : Severe tenderness over the Sacroiliac joint: right side / left side Range of motion: Flexion of the lumbar spine <60 degrees Range of motion: Extension of the lumbar spine <20 degrees Gaenslen's Test positive Rome test: positive right side / left side Thigh Thrust Test Sacral Thrust Test Imaging: MRI non contrast of the lumbar spine from Jun 01 2021 reviewed Assessment and plan: Chronic LBP secondary to lumbar DDD, spondylosis with facet arthropathy without myelopathy Recommendation of lumbar x ray M51.36 May need additional testing if indicated. All patient questions answered I have spent less than 30 minutes on patient care today. Dr Franco was available by phone for the evaluation of this patient. The time was used to review the medical records including relevant urine studies and Prescription history (MAPs), review of the available imaging, evaluation and examination of the patient, coordination of care with the medical staff and if applicable referring physicians, as well as creation of the medical record PQRS Narrative: Smoking Status Former smoker Hx Alcohol Use (MH) No Home Medications: Ambulatory Orders Rivastigmine Tartrate [Exelon] 4.5 mg PO BID 03/22/14 Tamsulosin [Flomax] 0.4 mg PO HS 01/09/18 Rivaroxaban [Xarelto] 20 mg PO PC-SUPPER 01/15/18 Atorvastatin [Lipitor] 10 mg PO DAILY 01/30/20 Furosemide [Lasix] 20 mg PO DAILY PRN 01/30/20 Candesartan Cilexetil [Atacand] 32 mg PO QAM 04/06/20 Cholecalciferol [Vitamin D3 (25 Mcg = 1000 Iu)] 2,000 unit PO DAILY 04/06/20 Multivit-Min/FA/Lycopen/Lutein [Centrum Silver Tablet] 1 each PO DAILY 04/06/20 amLODIPine BESYLATE 10 mg PO QAM 04/06/20 hydrALAZINE HCL [Apresoline] 25 mg PO BID 04/06/20 Metoprolol Tartrate 50 mg PO HS #0 04/05/21 Gabapentin 600 mg PO TID PRN 05/02/22 Amiodarone [Cordarone] 200 mg PO BID 06/13/22 Controlled Substance Measures - Controlled Substance Measures Is patient prescribed a controlled substance at discharge?: No
== END ==
LOC: PNWHC3 12:27
PROVIDERS: ATTEND Specialist
DX: M51.36 Other intervertebral disc degeneration, lumbar region (principal); M47.816 Spondylosis without myelopathy or radiculopathy, lumbar region; G89.29 Other chronic pain; Z87.891 Personal history of nicotine dependence
CPT/HCPCS: 99211

== ENCOUNTER → 2023-11-02 | Outpatient (CLI) | payer MEDICARE ==
--- NOTE | 2023-11-02 13:49 | XR ---
EXAMINATION TYPE: XR lumbar spine 2 or 3V DATE OF EXAM: 11/02/2023 CLINICAL HISTORY: pain TECHNIQUE: Three views of the lumbar spine are submitted. COMPARISON: None. FINDINGS: There are 5 lumbar type vertebral bodies identified. Rotoscoliosis convex to the left. The lumbar sp ine shows satisfactory alignment without evidence of acute fracture or dislocation. Vertebral body he ights are within normal limits. Severe multilevel degenerative disc disease and spondylosis. The o verlying soft tissue appears unremarkable. IMPRESSION: No acute fracture or dislocation is seen in the lumbar spine. ICD 10 NO FRACTURE, INITIAL EVALUATION
== END | disposition home or self-care (01) ==
LOC: RADXRMAIN 13:23
PROVIDERS: ATTEND Physician Assistant Medical
DX: M51.36 Other intervertebral disc degeneration, lumbar region (principal)
CPT/HCPCS: 72100

== ENCOUNTER → 2023-11-24 | Outpatient (CLI) | payer MEDICARE ==
--- NOTE | 2023-11-24 15:15 | MR ---
EXAMINATION TYPE: MR lumbar spine wo con DATE OF EXAM: 11/24/2023 COMPARISON: Radiographs 11/02/2023 HISTORY: 83-year-old male M51.36 Low back pain into buttocks and rt lower extremity TECHNIQUE: Multiplanar, multisequence images of the lumbar spine were acquired without IV contrast. FINDINGS: Degenerated levoconvex scoliosis along the upper lumbar spine. There is associated edematous Modic ty pe I endplate change towards the right at L1-L2. Also towards the right at at L4-L5. In addition, tow ards the left at L5-S1.k Heterogeneous red marrow hyperplasia is noted. No suspicious bone marrow replacement. Vertebral body heights are preserved. Straightening of the normal lumbar lordosis. Preserved alignment. Severe multilevel disc/end plate degenerative change with narrowed, desiccated, and bulging discs. Ligament of the thickening and multilevel advanced hypertrophic facet arthropathy is present. Conus medullaris estimated at the L2 level which is slightly low. However, changes contribute to severe focal spinal canal stenosis at L1-L2 and L2-L3. Mild L3-L4 and L4-L5. On the right, there is severe neuroforaminal stenosis at L2-L3, moderate to severe at L4-L5 and L5-S1 . Moderate at L1-L2. On the left, changes result in severe neuroforaminal stenosis at L4-L5 and L5-S1 and moderate at L2-L 3 and L3-L4. No prevertebral paravertebral soft tissue abnormality seen. IMPRESSION: 1. Degenerated levoconvex scoliosis at the upper lumbar spine. 2. Severe multilevel degenerative disc disease with scattered edematous Modic type I endplate change particularly towards the sides of concavity as mentioned above. Scattered ligamentum flavum thickenin g and advanced hypertrophic facet arthropathy throughout. 3. Changes result in severe focal spinal canal stenosis at L1-L2 and L2-L3. Mild at L3-L4 L4-L5. 4. Variable neuroforaminal stenoses, severe at some levels as outlined above.
== END | disposition home or self-care (01) ==
LOC: RADMRIMAIN 11:22
PROVIDERS: ATTEND Specialist
DX: M51.36 Other intervertebral disc degeneration, lumbar region (principal); M47.816 Spondylosis without myelopathy or radiculopathy, lumbar region; M48.061 Spinal stenosis, lumbar region without neurogenic claudication; R60.9 Edema, unspecified
CPT/HCPCS: 72148

== ENCOUNTER → 2023-11-30 | Outpatient (CLI) | payer MEDICARE ==
[2023-11-30 13:58] VITALS: BP 170/85; PULSE 45; RESP 16
--- NOTE | 2023-11-30 14:59 | P.PAINPG ---
PQRS Measure Charge Sheet Comment: A 83 yr old male w at side with a history of severe and chronic LBP secondary to lumbar DDD and spondylosis with facet arthropathy without myelopathy presents today for evaluation. Pain level is provoked at 9 /10 in intensity, constant, localized in the lumbar spine, predominantly axial, dull character w occasional radiation of pain towards the R buttock. Pain is provoked by lifting. Pain is alleviated with PT x 6 wks which ended in Jul 2022, physician guided stretches every morning since Jul 2022, injections, OTC medications, repositioning and rest. Oswestry axial pain score of 26. Interventional pain procedures completed include PAULO L1-L2 x3 Patient is currently on Tyl Patient denies any side effects of the medication(s), denies excessive drowsiness or sleepiness, denies suicidal ideation and reports that the current pain medication is helping to control the pain and improve activities of daily living. Patient denies any motor or sensory deficits. Patient denies any fever or night sweats, denies any change in the bowel movements or urination. Physical Examination: -Constitutional: Cooperative. Not in acute distress . - Neurologic: Cranial nerve II to XII intact. No focal neurological deficits. - Psychatric: Alert & oriented x 3. Matching mood & appropriate affect. Judgment and insight intact. - Musculoskeletal: Cervical spine: Muscle bulk/ tone/ strength in the bilateral upper extremities normal Vertebral body tenderness to palpation over Spurling test positive Distraction test positive Facet loading test positive Thoracic spine Muscle bulk / tone/ strength in the bilateral paraspinal muscles normal Vertebral body tender to palpation over Facet loading test positive Lumbar spine: Motor bulk/ tone/ strength lower extremities , thigh and legs : 5/5 Deep tendon reflexes : Normal Knee Jerk. Normal Ankle Jerk . Vertebral body tenderness to palpation over L5 Buchanan test positive BL L4-L5 Lumbar Facet Loading Test positive Straight Leg Raise: positive at 30 degrees right side/ left side Gaenslen's Test positive Sacral spine : Severe tenderness over the Sacroiliac joint: right side / left side Range of motion: Flexion of the lumbar spine <60 degrees Range of motion: Extension of the lumbar spine <20 degrees Gaenslen's Test positive Rome test: positive right side / left side Thigh Thrust Test Sacral Thrust Test Imaging: MRI non contrast of the lumbar spine from 11/24/23 reviewed Assessment and plan: Chronic LBP secondary to severe focal spinal canal stenoses, severe neuro foraminal stenoses Recommendation of PAULO L4-L5 #1. May need a series fo injections for optimal pain relief. Risks, benefits of procedure discussed and pt verbalized understanding. Protocol fro discontinuation/ continuation of medications arden procedure discussed. All patient questions answered I have spent less than 30 minutes on patient care today. Dr Franco was available by phone for the evaluation of this patient. The time was used to review the medical records including relevant urine studies and Prescription history (MAPs), review of the available imaging, evaluation and examination of the patient, coordination of care with the medical staff and if applicable referring physicians, as well as creation of the medical record PQRS Narrative: Smoking Status Former smoker Hx Alcohol Use (MH) No Home Medications: Ambulatory Orders Rivastigmine Tartrate [Exelon] 4.5 mg PO BID 03/22/14 Tamsulosin [Flomax] 0.4 mg PO HS 01/09/18 Rivaroxaban [Xarelto] 20 mg PO PC-SUPPER 01/15/18 Atorvastatin [Lipitor] 10 mg PO DAILY 01/30/20 Furosemide [Lasix] 20 mg PO DAILY PRN 01/30/20 Candesartan Cilexetil [Atacand] 32 mg PO QAM 04/06/20 Cholecalciferol [Vitamin D3 (25 Mcg = 1000 Iu)] 2,000 unit PO DAILY 04/06/20 Multivit-Min/FA/Lycopen/Lutein [Centrum Silver Tablet] 1 each PO DAILY 04/06/20 amLODIPine BESYLATE 10 mg PO QAM 04/06/20 hydrALAZINE HCL [Apresoline] 25 mg PO BID 04/06/20 Metoprolol Tartrate 50 mg PO HS #0 04/05/21 Gabapentin 600 mg PO TID PRN 05/02/22 Amiodarone [Cordarone] 200 mg PO BID 06/13/22 HYDROcodone/APAP 7.5-325MG [[place] 7.5-325] 1 tab PO Q4H PRN 3 Days #15 tab 11/30/23 Controlled Substance Measures - Controlled Substance Measures Is patient prescribed a controlled substance at discharge?: No
== END ==
LOC: PNWHC3 13:07
PROVIDERS: ATTEND Specialist
DX: M99.63 Osseous and subluxation stenosis of intervertebral foramina of lumbar region (principal); M48.00 Spinal stenosis, site unspecified; G89.29 Other chronic pain; Z87.891 Personal history of nicotine dependence
CPT/HCPCS: 99211

== ENCOUNTER 2023-12-22 12:09 | Day surgery (SDC) | payer MEDICARE ==
[~2023-12-22 12:09] MED LIST changes: -LIDOCAINE 1% (10MG/ML) FOR IV START INTRADERMA PRN
[2023-12-22 12:42] VITALS: RESP 18; TEMP 98
[2023-12-22] MEDS ORDERED: IOPAMIDOL M200 10 ML VIAL ONE (13:02)
[2023-12-22] MEDS ORDERED: methylPREDNISolone ACETATE 40 MG/ML 1 ML VIAL ONE (13:02)
--- NOTE | 2023-12-22 13:14 | P.PCN ---
Date of Procedure: 12/22/23 Procedure(s) Performed: PREOPERATIVE DIAGNOSIS: 1- Lumbar Degenerative Disc Diseases 2-Lumbar spondylosis with Facet arthropathy without myelopathy 3-lumbar radiculopathy POSTOPERATIVE DIAGNOSIS: Same as preop diagnosis. PROCEDURE 1. Lumbar epidural steroid injection under fluoroscopic guidance at the L4-5 level. (Fluoroscopy imaging was available in radiology department) 2. Lumbar epidurogram. ANESTHESIA: Local with 1% lidocaine 3 ml only. EBL: Minimal PROCEDURE INDICATION: The patient with low back pain and radiculitis symptoms unresponsive to conservative treatment. Fluoroscopy was used to optimize visualization of the needle placement and to maximize safety. PROCEDURE DESCRIPTION / TECHNIQUE: The patient was seen and identified in the preoperative area. Risks, benefits, complications including but not limited to infections ,bleeding ,allergic reaction to the medications ,nerve damage and not complete pain releife , and alternatives were discussed with the patient. The patient agreed to proceed with the procedure and signed the consent, and vital signs were stable. Patient was taken to the OR and time out was completed. The patient was placed in the prone position on procedure table and a pillow was placed under the abdomen to reduce lumbar lordosis. The lumbosacral area was prepped and draped in the usual sterile fashion.ere closely monitored during the procedure. Conscious sedation was used during the procedure to decrease patients anxiety. Vital signs was monitered during the entire procedure. Using anterior-posterior fluoroscopy, the L4-5 interlaminar space was identified and the skin over this site was marked and then infiltrated with 1% lidocaine subcutaneously. Subsequently, 20-gauge Tuohy epidural needle was inserted and advanced toward the epidural space using the ``Loss of resistance technique and guided by AP and lateral fluoroscopy. The correct needle position in the epidural space was verified with the injection of 2 mL of the water soluble contrast dye Isovue 200 contrast and observing an excellent epidurogram with the epidural spread of the dye, after negative aspiration for blood and CSF and in the absence of paresthesias. Again after negative aspiration, a 6 ml mixture containing 40 mg of Depo-medrol , and 2 ml of preservative free Normal Saline, and 2 ml of preservative free lidocaine 1% solution was injected and a washout of epidurogram was seen. Needle was withdrawn intact, skin was cleansed, and ban dages were applied. COMPLICATIONS: None DISPOSITION / PLANS: The patient was placed in a supine position and transferred to the recovery area in a stable condition for observation. There was no evide nce of lower extremity motor or sensory deficit after the procedure. Patient was discharged from the recovery room after meeting discharge criteria. Home discharge instructions were given to the patient by the staff. The patient was reexamined prior to discharge. The patient will schedule a follow up in the clinic in 2-4 weeks. Patient use Xarelto,(last dose was more than 72 hours ago).
--- NOTE | 2023-12-22 13:20 | FL ---
Fluoroscopy History: PARMINDER ZURITA with Cj Braga. 1 image saved. 1.6 sec fluoro time. .[id number] DAP. LC
[2023-12-22 13:34] VITALS: BP 170/74; PULSE 47
== END 2023-12-22 13:48 | disposition home or self-care (01) ==
LOC: ORPAIN 12:09
PROVIDERS: ATTEND Specialist
DX: M47.26 Other spondylosis with radiculopathy, lumbar region (principal); M51.16 Intervertebral disc disorders with radiculopathy, lumbar region; Z79.01 Long term (current) use of anticoagulants; Z79.899 Other long term (current) drug therapy
CPT/HCPCS: 62323; Q9966; J1010

== ENCOUNTER → 2024-01-15 | Outpatient (CLI) | payer MEDICARE ==
--- NOTE | 2024-01-15 14:26 | P.PAINPG ---
PQRS Measure Charge Sheet Comment: A 83 yr old male w at side with a history of severe and chronic LBP secondary to lumbar DDD and spondylosis with facet arthropathy without myelopathy presents today for evaluation s/p PAULO L4-L5 #1. Pt states he experienced 70% pain relief x 3 wks s/p procedure. Pain level is provoked at 5 /10 in intensity, intermittent, localized in the lumbar spine, predominantly axial, dull character without radiation of pain. Pain is provoked by standing. Pain is alleviated with PT x 6 wks which ended in Jul 2022, physician guided stretches every morning since Jul 2022, injections, OTC medications, repositioning and rest. Interventional pain procedures completed include PAULO L1-L2 x3, L4-L5 x1 (Dec 2023) Patient is currently on Tyl Patient denies any side effects of the medication(s), denies excessive drowsiness or sleepiness, denies suicidal ideation and reports that the current pain medication is helping to control the pain and improve activities of daily living. Patient denies any motor or sensory deficits. Patient denies any fever or night sweats, denies any change in the bowel movements or urination. Physical Examination: -Constitutional: Cooperative. Not in acute distress . - Neurologic: Cranial nerve II to XII intact. No focal neurological deficits. - Psychatric: Alert & oriented x 3. Matching mood & appropriate affect. Judgment and insight intact. - Musculoskeletal: Cervical spine: Muscle bulk/ tone/ strength in the bilateral upper extremities normal Vertebral body tenderness to palpation over Spurling test positive Distraction test positive Facet loading test positive Thoracic spine Muscle bulk / tone/ strength in the bilateral paraspinal muscles normal Vertebral body tender to palpation over Facet loading test positive Lumbar spine: Motor bulk/ tone/ strength lower extremities , thigh and legs : 5/5 Deep tendon reflexes : Normal Knee Jerk. Normal Ankle Jerk . Vertebral body tenderness to palpation over L5 Buchanan test positive BL L4-L5 Lumbar Facet Loading Test positive L3-L4, L4-L5 Straight Leg Raise: positive at 30 degrees right side/ left side Gaenslen's Test positive Sacral spine : Severe tenderness over the Sacroiliac joint: right side / left side Range of motion: Flexion of the lumbar spine <60 degrees Range of motion: Extension of the lumbar spine <20 degrees Gaenslen's Test positive Rome test: positive right side / left side Thigh Thrust Test Sacral Thrust Test Imaging: MRI non contrast of the lumbar spine from 11/24/23 reviewed Assessment and plan: Chronic LBP secondary to severe focal spinal canal stenoses, severe neuroforaminal stenoses Recommendation of BL MBB L3-L4, L4-L5 #1. May need a series of injections, up until RFA, for optimal pain relief. Risks, benefits of procedure discussed and patient verbalized understanding. Minimal anesthesia, including Fentanyl and Versed, if clinically indicated.. All patient questions answered I have spent less than 30 minutes on patient care today. Dr Franco was available by phone for the evaluation of this patient. The time was used to review the medical records including relevant urine studies and Prescription history (MAPs), review of the available imaging, evaluation and examination of the patient, coordination of care with the medical staff and if applicable refer ring physicians, as well as creation of the medical record PQRS Narrative: Smoking Status Former smoker Hx Alcohol Use (MH) No Home Medications: Ambulatory Orders Tamsulosin [Flomax] 0.4 mg PO HS 01/09/18 Rivaroxaban [Xarelto] 20 mg PO PC-SUPPER 01/15/18 Atorvastatin [Lipitor] 10 mg PO DAILY 01/30/20 Furosemide [Lasix] 20 mg PO DAILY PRN 01/30/20 Candesartan Cilexetil [Atacand] 32 mg PO QAM 04/06/20 Cholecalciferol [Vitamin D3 (25 Mcg = 1000 Iu)] 2,000 unit PO DAILY 04/06/20 Multivit-Min/FA/Lycopen/Lutein [Centrum Silver Tablet] 1 each PO DAILY 04/06/20 amLODIPine BESYLATE 10 mg PO QAM 04/06/20 hydrALAZINE HCL [Apresoline] 25 mg PO BID 04/06/20 Metoprolol Tartrate 50 mg PO HS #0 04/05/21 Amiodarone [Cordarone] 50 mg PO DAILY 06/13/22 Controlled Substance Measures - Controlled Substance Measures Is patient prescribed a controlled substance at discharge?: No
[2024-01-15 14:58] VITALS: BP 178/74; PULSE 51; RESP 16; TEMP 97.3
== END ==
LOC: PNWHC3 13:00
PROVIDERS: ATTEND Specialist
DX: M54.16 Radiculopathy, lumbar region
CPT/HCPCS: 99211

== ENCOUNTER 2024-03-05 08:35 | Day surgery (SDC) | payer MEDICARE ==
[2024-03-05 09:37] VITALS: TEMP 97.5
[2024-03-05] MEDS: IV FLUID CONTINUATION 1,000 ML IV ONE ×3 (09:50→11:07)
[2024-03-05] MEDS: LACTATED RINGERS 1,000 ML IV SCH (09:51)
[2024-03-05] MEDS ORDERED: fentaNYL (PF) 50 MCG/ML 2 ML AMP ONE (10:18)
[2024-03-05] MEDS ORDERED: ROPIVACAINE 5MG/ML 20ML VIAL ONE (10:18)
[2024-03-05] MEDS ORDERED: MIDAZOLAM 2 MG/2 ML VIAL ONE (10:18)
--- NOTE | 2024-03-05 10:35 | P.PCN ---
Date of Procedure: 03/05/24 Procedure(s) Performed: PREOPERATIVE DIAGNOSIS : 1- Lumbar spondylosis with Facet Arthropathy without myelopathy . 2- Lumber degenerative disc disease POSTOPERATIVE DIAGNOSIS: 1- Lumbar spondylosis with Facet Arthropathy without myelopathy . 2- Lumber degenerative disc disease PROCEDURE: Diagnostic bilateral L2 , L3 , and L4 medial branch block under fluoroscopy guidance(fluoroscopy images available in the radiology Department ) ( To target the facet joint between Bilateral L3-4 , L4-5 ) #1st ANESTHESIA:moderate sedation with intravenous Versed 2 mg and Fentanyl 50 mcg. (sedations started at 10:18, ended at 10:28) EBL: Minimal COMPLICATION: None PROCEDURE INDICATION: Chronic low back pain secondary to Facet arthropathy unresponsive to conservative treatment. PROCEDURE DESCRIPTION: the patient was seen and identified in the preop holding area , risks and benefits and possible complications of the procedure and alternative were discussed with the patient, and the patient agreed to proceed with the procedure and signed the consent and vital signs monitored during the procedure and fluoroscopy was used to maximize the benefit and accuracy of the needle placement, and sedation was given to decrease patient anxiety, patient was taken to the procedure room and placed in prone position vital signs monitored in the back prepped with chlorhexidine X3 then under strict sterile technique using a right oblique fluoroscopy ,the junction of the transverse process and the superior articulating process of the right L2 ,L3 , L4 vertebra which corresponding to the fluoroscopy image of the eye of the River dog on the block side for the medial branches and subsequently , after local infiltration of skin and subcu tissuies with Ropivacaine 0.5 % , one mL at each level ,then 22-gauge Quincke-type needles , 3 needle was used , each one of them placed at the junction of the base of the transverse process and the superior articular process at the appropriate level, and the needle was advanced until the periosteum contacted, needle placement confirmed with AP oblique and lateral view and after appropriate needle placement confirmed, and after negative aspiration for heme and CSF and there was no paresthesia 1-1/2 mL of Ropivacaine , then half mL injected at each level after negative aspiration the needle subsequently removed and the same procedure repeated for the left side at left side at L2 ,L3 , L4 levels. At the end of the procedure and the needles removed and a bandage applied after the skin was cleaned the cleaning solution patient taken to recovery room in stable condition and monitors in the recovery room for 20-30 minutes and discharged home in stable condition after discharge criteria met and patient will follow up with the pain clinic in 2-4 weeks
[2024-03-05 11:05] VITALS: BP 131/69; PULSE 54; RESP 18
--- NOTE | 2024-03-05 11:14 | FL ---
EXAMINATION TYPE: FL guided pain mgmt statistic DATE OF EXAM: 03/05/2024 10:37 AM COMPARISON: Pre Operative Images if available both CT/MRI or plain film CLINICAL INDICATION: Male, 84 years old with history of PAIN; TECHNIQUE: FL guided pain mgmt statistic, multiple fluoroscopic images provided for procedure. Total fluoroscopy time: 9.3 seconds Total submitted images to PACS: 4 DAP: [id number] mGym2 Gycm2 uGym2 cGycm2 or equivalent. FINDINGS: Fluoroscopic images during injection for pain management demonstrate multilevel degeneration changes throughout the spine. No evidence for fracture. No acute process identified. IMPRESSION: 1. No evidence for intraoperative complication. 2. Please see the operative/procedural note for further details. [facility], , 03/05/2024 11:11 AM
== END 2024-03-05 11:18 | disposition home or self-care (01) ==
LOC: ORPAIN 08:35
PROVIDERS: ATTEND Specialist
DX: M47.816 Spondylosis without myelopathy or radiculopathy, lumbar region (principal); M51.369 Other intervertebral disc degeneration, lumbar region without mention of lumbar back pain or lower extremity pain
CPT/HCPCS: 64493; 64494; J2250; J3010; J2795; 99152

== ENCOUNTER → 2024-03-21 | Outpatient (CLI) | payer MEDICARE ==
[2024-03-21 12:52] VITALS: BP 148/64; PULSE 50; RESP 16
--- NOTE | 2024-03-25 07:41 | P.PAINPG ---
PQRS Measure Charge Sheet Comment: A 83 yr old male w at side with a history of severe and chronic LBP secondary to radiculopathy, spondylosis with facet arthropathy without myelopathy presents today for evaluation s/p BL MBB L3-L4, L4-L5 #1. Pt states he experienced 0% pain relief s/p procedure. Pain level is provoked at 6 /10 in intensity, intermittent, localized in the lumbar spine, predominantly axial, dull character without radiation of pain. Pain is provoked by standing. Pain is alleviated with PT x 6 wks which ended in Jul 2022, physician guided stretches every morning since Jul 2022, injections, OTC medications, repositioning and rest. Interventional pain procedures completed include PAULO L1-L2 x3, L4-L5 x1 (Dec 2023), BL MBB L3-L4/ L4-L5 x1 Patient is currently on Tyl Patient denies any side effects of the medication(s), denies excessive drowsiness or sleepiness, denies suicidal ideation and reports that the current pain medication is helping to control the pain and improve activities of daily living. Patient denies any motor or sensory deficits. Patient denies any fever or night sweats, denies any change in the bowel movements or urination. Physical Examination: -Constitutional: Cooperative. Not in acute distress . - Neurologic: Cranial nerve II to XII intact. No focal neurological deficits. - Psychatric: Alert & oriented x 3. Matching mood & appropriate affect. Judgment and insight intact. - Musculoskeletal: Cervical spine: Muscle bulk/ tone/ strength in the bilateral upper extremities normal Vertebral body tenderness to palpation over Spurling test positive Distraction test positive Facet loading test positive Thoracic spine Muscle bulk / tone/ strength in the bilateral paraspinal muscles normal Vertebral body tender to palpation over Facet loading test positive Lumbar spine: Motor bulk/ tone/ strength lower extremities , thigh and legs : 5/5 Deep tendon reflexes : Normal Knee Jerk. Normal Ankle Jerk . Vertebral body tenderness to palpation over L5 Buchanan test positive BL L4-L5 Lumbar Facet Loading Test positive L3-L4, L4-L5 Straight Leg Raise: positive at 30 degrees right side/ left side Gaenslen's Test positive Sacral spine : Severe tenderness over the Sacroiliac joint: right side / left side Range of motion: Flexion of the lumbar spine <60 degrees Range of motion: Extension of the lumbar spine <20 degrees Gaenslen's Test positive [place] test: positive right side / left side Thigh Thrust Test Sacral Thrust Test Imaging: MRI non contrast of the lumbar spine from 11/24/23 reviewed Assessment and plan: Chronic LBP secondary to severe focal spinal canal stenoses, severe neuroforaminal stenoses Will follow up w their orthopedic surgeon for additional treatment options. [place] 5/325mg #18 NR Use, side effects, adverse reactions, safe storage discussed. All patient questions answered I have spent less than 30 minutes on patient care today. Dr Franco was available by phone for the evaluation of this patient. The time was used to review the medical records including relevant urine studies and Prescription history (MAPs), review of the available imaging, evaluation and examination of the patient, coordination of care with the medical staff and if applicable referring physicians, as well as creation of the medical record - Pain Location Lower Back Pharmacological Interventions: Epidural, PRN Medication PQRS Narrative: Smoking Status Former smoker Hx Alcohol Use (MH) No Home Medications: Ambulatory Orders Tamsulosin [Flomax] 0.4 mg PO HS 01/09/18 Rivaroxaban [Xarelto] 20 mg PO PC-SUPPER 01/15/18 Atorvastatin [Lipitor] 10 mg PO DAILY 01/30/20 Furosemide [Lasix] 20 mg PO DAILY PRN 01/30/20 Candesartan Cilexetil [Atacand] 32 mg PO QAM 04/06/20 Cholecalciferol [Vitamin D3 (25 Mcg = 1000 Iu)] 2,000 unit PO DAILY 04/06/20 Multivit-Min/FA/Lycopen/Lutein [Centrum Silver Tablet] 1 each PO DAILY 04/06/20 amLODIPine BESYLATE 10 mg PO QAM 04/06/20 hydrALAZINE HCL [Apresoline] 50 mg PO BID 04/06/20 Propranolol HCl [Propranolol HCl ER] 120 mg PO DAILY 03/01/24 Controlled Substance Measures - Controlled Substance Measures Is patient prescribed a controlled substance at discharge?: Yes When asked, does pt state using other controlled substances?: No If prescribed controlled substance>3 days was MAPS reviewed?: Prescribed <3 Days
== END ==
LOC: PNWHC3 12:36
PROVIDERS: ATTEND Specialist
DX: M47.816 Spondylosis without myelopathy or radiculopathy, lumbar region (principal); M48.061 Spinal stenosis, lumbar region without neurogenic claudication; Z87.891 Personal history of nicotine dependence
CPT/HCPCS: 99211

== ENCOUNTER 2024-06-19 14:26 | Emergency (ER) | payer MEDICARE ==
--- NOTE | 2024-06-19 15:21 | ED ---
Male Urogenital HPI - General Chief complaint: Urogenital Stated complaint: can't urinate Time Seen by Provider: 06/19/24 14:31 Source: patient, RN notes reviewed Mode of arrival: ambulatory Limitations: no limitations - History of Present Illness Initial comments: 84-year-old male presents emergency department chief complaint of unable to urinate. He states he is only getting a small amount of urine only states he has lower abdominal pressure he states been told that his prostate is enlarged and this would happen eventually. Patient denies any fevers or chills no flank pain no chest pain or shortness of breath no other complaints. - Related Data Home Medications Medication Instructions Recorded Confirmed Tamsulosin [Flomax] 0.4 mg PO HS 01/09/18 03/05/24 Rivaroxaban [Xarelto] 20 mg PO PC-SUPPER 01/15/18 03/05/24 Atorvastatin [Lipitor] 10 mg PO DAILY 01/30/20 03/05/24 Furosemide [Lasix] 20 mg PO DAILY PRN 01/30/20 03/05/24 Candesartan Cilexetil [Atacand] 32 mg PO QAM 04/06/20 03/05/24 Cholecalciferol [Vitamin D3 (25 2,000 unit PO DAILY 04/06/20 03/05/24 Mcg = 1000 Iu)] Multivit-Min/FA/Lycopen/Lutein 1 each PO DAILY 04/06/20 03/05/24 [Centrum Silver Tablet] amLODIPine BESYLATE 10 mg PO QAM 04/06/20 03/05/24 hydrALAZINE HCL [Apresoline] 50 mg PO BID 04/06/20 03/05/24 Propranolol HCl [Propranolol HCl 120 mg PO DAILY 03/01/24 03/05/24 ER] Previous Rx's Medication Instructions Recorded HYDROcodone/APAP 5-325MG [[place] 1 tab PO Q4HR PRN 3 Days #18 tab 03/21/24 5-325] Tamsulosin [Flomax] 0.4 mg PO DAILY #7 cap 06/19/24 Allergies Allergy/AdvReac Type Severity Reaction Status Date / Time No Known Allergies Allergy Verified 06/19/24 14:30 Review of Systems ROS Statement: Those systems with pertinent positive or pertinent negative responses have been documented in the HPI. ROS Other: All systems not noted in ROS Statement are negative. Past Medical History Past Medical History: Atrial Fibrillation, Coronary Artery Disease (CAD), Cancer, GERD/Reflux, Hearing Disorder / Deafness, Hyperlipidemia, Hypertension, Musculoskeletal Disorder, Prostate Disorder Additional Past Medical History / Comment(s): Skin cancer, recent lesions removed. BPH. Charcot-Mónica Tooth disease (a muscle deterioration), neuropathy in feet, wears bilat.leg braces; Tremors, Vertigo, balance issues, DDD, spinal stenosis. History of Any Multi-Drug Resistant Organisms: None Reported Past Surgical History: Orthopedic Surgery Additional Past Surgical History / Comment(s): Skin cancer exc forehead, nose. Lt Foot bone chip removed(02/12), JEFFERY & Cardioversion x3, colonoscopy Past Anesthesia/Blood Transfusion Reactions: No Reported Reaction, Family History of Problems w/ Anesthesia Additional Past Anesthesia/Blood Transfusion Reaction / Comment(s): (sister gets agitated, low blood pressure) Past Psychological History: No Psychological Hx Reported Smoking Status: Former smoker - Past Family History Daughter(s) Family Medical History: Cancer Additional Family Medical History / Comment(s): BREAST Brother(s) Family Medical History: Cancer Additional Family Medical History / Comment(s): prostate cancer Son(s) Family Medical History: Cancer Additional Family Medical History / Comment(s): prostate cancer General Exam Limitations: no limitations General appearance: alert, in no apparent distress Head exam: Present: atraumatic, normocephalic, normal inspection Respiratory exam: Present: normal lung sounds bilaterally. Absent: respiratory distress, wheezes, rales, rhonchi, stridor Cardiovascular Exam: Present: regular rate, normal rhythm, normal heart sounds. Absent: systolic murmur, diastolic murmur, rubs, gallop, clicks GI/Abdominal exam: Present: soft, tenderness, normal bowel sounds. Absent: distended, guarding, rebound, rigid Course Vital Signs 06/19/24 14:28 Temperature 98.4 F Pulse Rate 86 Respiratory 16 Rate Blood Pressure 186/88 O2 Sat by Pulse 96 Oximetry Medical Decision Making - Medical Decision Making Was pt. sent in by a medical professional or institution (, PA, LABORER CUTTING TOOL, urgent care, hospital, or prison...) When possible be specific @ -No Did you speak to anyone other than the patient for history (EMS, parent, family, police, friend...)? What history was obtained from this source @ -No Did you review nursing and triage notes (agree or disagree)? Why? @ -I reviewed and agree with nursing and triage notes Were old charts reviewed (outside hosp., previous admission, EMS record, old E KG, old radiological studies, urgent care reports/EKG's, prison records)? Report findings @ -No old charts were reviewed Differential Diagnosis (chest pain, altered mental status, abdominal pain women, abdominal pain men, vaginal bleeding, weakness, fever, dyspnea, syncope, headache, dizziness, GI bleed, back pain, seizure, CVA, palpatations, mental health, musculoskeletal)? @ -UTI, urinary retention, BPH EKG interpreted by me (3pts min.). @ -None X-rays interpreted by me (1pt min.). @ -None done CT interpreted by me (1pt min.). @ -None done U/S interpreted by me (1pt. min.). @ -None done What testing was considered but not performed or refused? (CT, X-rays, U/S, labs)? Why? @ -None What meds were considered but not given or refused? Why? @ -None Did you discuss the management of the patient with other professionals (professionals i.e. , PA, LAB[employer] C[employer], lab, RT, psych nurse, social media marketing manager, social professionals, teacher, weapons officer naval activity, case advocate)? Give summary @ -No Was smoking cessation discussed for >3mins.? @ -No Was critical care preformed (if so, how long)? @ -No Were there social determinants of health that impacted care today? How? (Homelessness, low income, unemployed, alcoholism, drug addiction, transportation, low edu. Level, literacy, decrease access to med. care, long term, rehab)? @ -No Was there de-escalation of care discussed even if they declined (Discuss DNR or withdrawal of care, Hospice)? DNR status @ -No What co-morbidities impacted this encounter? (DM, HTN, Smoking, COPD, CAD, Cancer, CVA, ARF, Chemo, Hep., AIDS, mental health diagnosis, sleep apnea, morbid obesity)? @ -None Was patient admitted / discharged? Hospital course, mention meds given and route, prescriptions, significant lab abnormalities, going to OR and other pertinent info. @ -Newell catheter was placed by nurse., Patient has no evidence of UTI patient be kept on Newell catheter with leg bag and Flomax return parameters shayla patient will follow-up with urology Undiagnosed new problem with uncertain prognosis? @ -No Drug Therapy requiring intensive monitoring for toxicity (Heparin, Nitro, Insulin, Cardizem)? @ -No Were any procedures done? @ -No Diagnosis/symptom? @ -Urinary retention Acute, or Chronic, or Acute on Chronic? @ -Acute Uncomplicated (without systemic symptoms) or Complicated (systemic symptoms)? @ -Uncomplicated Side effects of treatment? @ -No Exacerbation, Progression, or Severe Exacerbation? @ -No Poses a threat to life or bodily function? How? (Chest pain, [place], [place], pneumonia, PE, COPD, DKA, ARF, appy, cholecystitis, CVA, Diverticulitis, Homicidal, Suicidal, threat to staff... and all critical care pts) @ -No - Lab Data Lab Results 06/19/24 Range/Units 15:07 Urine Color Light Yellow Urine Appearance Clear (Clear) Urine pH 6.5 (5.0-8.0) Ur Specific [place] 1.012 (1.001-1.035) Urine Protein Trace H (Negative) Urine Glucose (UA) Negative (Negative) Urine Ketones 1+ H (Negative) Urine Blood Negative (Negative) Urine Nitrite Negative (Negative) Urine Bilirubin Negative (Negative) Urine Urobilinogen <2.0 (<2.0) mg/dL Ur Leukocyte Esterase Negative (Negative) Disposition Clinical Impression: Urinary retention Disposition: HOME SELF-CARE Condition: Stable Instructions (If sedation given, give patient instructions): Urinary Retention in Men (ED) Additional Instructions: Please return to the Emergency Department if symptoms worsen or any other concerns. Prescriptions: Tamsulosin [Flomax] 0.4 mg PO DAILY #7 cap Is patient prescribed a controlled substance at d/c from ED?: No Referrals: Jimi Valenzuela DO [Primary Care Provider] - 1-2 days Time of Disposition: 15:33
[2024-06-19 15:28] LABS: Appearance,Urine Clear (Clear); Bilirubin,Urine Negative (Negative); Blood,Urine Negative (Negative); Color,Urine Light Yellow; Glucose,Urine (UA) Negative (Negative); Ketones,Urine 1+ (Negative); Leukocyte Esterase,Urine Negative (Negative); Nitrite,Urine Negative (Negative); PH, Urine 6.5 (5.0-8.0); Protein,Urine Trace (Negative); Specific Gravity,Urine 1.012 (1.001-1.035); Urobilinogen,Urine <2.0 mg/dL (<2.0)
[2024-06-19 16:01] VITALS: BP 170/76; PULSE 80; RESP 18; TEMP 98
== END 2024-06-19 16:00 | disposition home or self-care (01) ==
LOC: EC 14:26
DX: R33.9 Retention of urine, unspecified (principal); Z87.891 Personal history of nicotine dependence
CPT/HCPCS: 51702; 51798; 81003; 99283

== ENCOUNTER → 2024-08-06 | Outpatient (CLI) | payer MEDICARE ==
[2024-08-06 15:43] LABS: Basophils # (A) 0.04 X 10*3/uL (0.00-0.10); Basophils % (A) 0.9 %; Eosinophils # (A) 0.14 X 10*3/uL (0.04-0.35); Eosinophils % (A) 3.2 %; HGB 13.2 g/dL (13.0-17.0); Lymphocytes # (A) 1.32 X 10*3/uL (0.90-5.00); Lymphocytes % (A) 30.6 %; MCH 31.6 pg (27.0-32.0); MCHC 32.2 g/dL (32.0-37.0); MCV 98.1 FL (80.0-97.0); Mean Platelet Volume 10.1 FL (9.5-12.2); Monocytes % (A) 13.9 %; NRBC Per 100 WBC 0 X 10*3/uL (0.00-0.01); Neutrophils # (A) 2.21 X 10*3/uL (1.80-7.70); Neutrophils % (A) 51.2 %; Platelet Count 175 X 10*3/uL (140-440); RBC 4.18 X 10*6/uL (4.40-5.60); RDW 13.5 % (11.5-14.5); WBC 4.32 X 10*3/uL (4.50-10.00)
[2024-08-06 15:45] LABS: Blood Urea Nitrogen 9.8 mg/dL (9.0-27.0); Calcium 9.7 mg/dL (8.7-10.3); Carbon Dioxide 23.8 mmol/L (21.6-31.8); Chloride 107 mmol/L (96-109); Glucose 116 mg/dL (70-110); Potassium 4.6 mmol/L (3.5-5.5); Sodium 140 mmol/L (135-145)
[2024-08-06 15:49] LABS: Appearance,Urine Clear (Clear); Bilirubin,Urine Negative (Negative); Blood,Urine Negative (Negative); Color,Urine Yellow (Yellow); Ketones,Urine Negative (Negative); Nitrite,Urine Negative (Negative); Specific Gravity,Urine 1.014 (1.001-1.030)
== END | disposition home or self-care (01) ==
LOC: LABWHC1 11:00
PROVIDERS: ATTEND Urology
DX: Z01.812 Encounter for preprocedural laboratory examination (principal); N40.1 Benign prostatic hyperplasia with lower urinary tract symptoms
CPT/HCPCS: 36415; 80048; 81003; 85025; 87086

== ENCOUNTER 2024-08-13 12:43 | Day surgery (SDC) | payer MEDICARE ==
[2024-08-12 08:59] VITALS: BMI 28.7
--- NOTE | 2024-08-13 10:51 | P.HPIHPCON ---
History of Present Illness H&P Date: 08/13/24 Chief Complaint: BPH This is an 84-year-old male with history of obstructive urinary symptoms. He has failed medical therapy. Underwent a cystoscopy that showed evidence of bilateral obstructive lateral lobes. Option of UroLift was discussed with him. He is aware of the risk which include but not limited to bleeding, infection, urinary incontinence. Discussed also potential of persistent symptoms even with a UroLift Consent for Procedure: I have explained the operation/procedure to the patient, including the risks, benefits, side effects, alternative therapies (including not receiving the proposed treatment or service), the likelihood of the patient achieving his/her goals, and potential recuperation problems for the procedure/sedation/analgesia, as well as any blood products, if indicated. I also explained to the patient the risks, benefits and side effects of the alternatives, as well as the risks related to not receiving the proposed procedure, care, treatment, or services. Past Medical History Past Medical History: Atrial Fibrillation, Coronary Artery Disease (CAD), Cancer, GERD/Reflux, Hearing Disorder / Deafness, Hyperlipidemia, Hypertension, Musculoskeletal Disorder, Prostate Disorder Additional Past Medical History / Comment(s): Hx kin cancer with removal, BPH, Charcot-Mónica Tooth disease (a muscle deterioration), neuropathy in feet, wears bilateral leg braces, tremors, vertigo, balance issues, DDD, spinal stenosis, SOB with activity occasionally, discoloration in left leg, sees Learning Consultant. History of Any Multi-Drug Resistant Organisms: None Reported Past Surgical History: Orthopedic Surgery Additional Past Surgical History / Comment(s): Skin cancer removed from forehead and nose, left foot bone chip removed(02/12), JEFFERY and Cardioversion X3, colonoscopy. Past Anesthesia/Blood Transfusion Reactions: No Reported Reaction, Family History of Problems w/ Anesthesia Additional Past Anesthesia/Blood Transfusion Reaction / Comment(s): (Sister gets agitated, low blood pressure). Smoking Status: Former smoker - Past Family History Daughter(s) Family Medical History: Cancer Additional Family Medical History / Comment(s): Breast cancer. Brother(s) Family Medical History: Cancer Additional Family Medical History / Comment(s): Prostate cancer. Son(s) Family Medical History: Cancer Additional Family Medical History / Comment(s): Prostate cancer. Medications and Allergies Home Medications Medication Instructions Recorded Confirmed Type Rivaroxaban [Xarelto] 20 mg PO PC-SUPPER 01/15/18 08/12/24 History Atorvastatin [Lipitor] 10 mg PO DAILY 01/30/20 08/12/24 History Furosemide [Lasix] 20 mg PO DAILY PRN 01/30/20 08/12/24 History Candesartan Cilexetil [Atacand] 32 mg PO QAM 04/06/20 08/12/24 History Cholecalciferol [Vitamin D3 (25 2,000 unit PO DAILY 04/06/20 08/12/24 History Mcg = 1000 Iu)] Multivit-Min/FA/Lycopen/Lutein 1 each PO DAILY 04/06/20 08/12/24 History [Centrum Silver Tablet] amLODIPine BESYLATE 10 mg PO QAM 04/06/20 08/12/24 History hydrALAZINE HCL [Apresoline] 50 mg PO BID 04/06/20 08/12/24 History Propranolol HCl [Propranolol HCl 120 mg PO DAILY 03/01/24 08/12/24 History ER] Tamsulosin [Flomax] 0.4 mg PO BID 08/12/24 08/12/24 History Allergies Allergy/AdvReac Type Severity Reaction Status Date / Time No Known Allergies Allergy Verified 08/12/24 08:41 Surgical - Exam - General no distress, no pain - Eyes normal ocular movement, no pale - ENT normal nares, normal mucosa - Respiratory normal expansion, normal respiratory effort - Abdomen Abdomen: soft, non tender - Psychiatric oriented to time, oriented to person, oriented to place Assessment and Plan Assessment: OR for Urolift
[~2024-08-13 12:43] MED LIST changes: +HYDROmorphone 0.5 MG/0.5 ML SYRINGE IVP PRN; -LACTATED RINGERS 1,000 ML IV SCH
[2024-08-13] MEDS: IV FLUID CONTINUATION 1,000 ML IV ONE (13:06)
[2024-08-13 13:21] VITALS: TEMP 97.4
[2024-08-13] MEDS: ONDANSETRON 4 MG/2 ML VIAL IVP ONE (13:22)
[2024-08-13] MEDS: DEXAMETHASONE SOD PHOSPHATE 4 MG/ML 1 ML VIAL IV ONE (13:23)
[2024-08-13] MEDS: LACTATED RINGERS 1,000 ML IV SCH (13:23)
[2024-08-13] MEDS ORDERED: LIDOCAINE 1% INJ 10MG/ML (20 ML MDV) ONE (14:02)
[2024-08-13] MEDS ORDERED: PROPOFOL 10 MG/ML 20 ML VIAL IV ONE (14:02)
[2024-08-13] MEDS ORDERED: fentaNYL (PF) 50 MCG/ML 2 ML AMP ONE (14:02)
--- NOTE | 2024-08-13 14:39 | P.OP ---
Date of Procedure: 08/13/24 Preoperative Diagnosis: BPH Postoperative Diagnosis: Same Procedure(s) Performed: UroLift x 8 Implants: UroLift clips and within the prostate Anesthesia: MAC Surgeon: Woody Freeman Estimated Blood Loss (ml): 10 Pathology: none sent Condition: stable Disposition: PACU Indications for Procedure: This is an 84-year-old male with history of obstructive urinary symptoms. He has failed medical therapy. Underwent a cystoscopy that showed evidence of bilateral obstructive lateral lobes. Option of UroLift was discussed with him. He is aware of the risk which include but not limited to bleeding, infection, urinary incontinence. Discussed also potential of persistent symptoms even with a UroLift Description of Procedure: Patient brought to the operating room, sedation was induced. He was prepped and draped sterile fashion placed in dorsolithotomy position. Cystoscopy fitted 21 Amharic sheath was inserted per urethra, cystoscopy was performed showed no abnormality within the bladder. Of note patient had a bilateral enlargement of the lateral lobes and they were occlusive. Using the UroLift clips a total of 8 clips were placed within the prostate 4 on the right and 4 on the left, clips were placed distal to the bladder neck and staying proximal to the Veru, following the completion of the UroLift there was a wide open anterior channel, there was minimal bleeding that was noted. Bladder was emptied at the end of the case, at this time the cystoscope was withdrawn. The patient was awakened from anesthesia and taken to recovery in stable condition
[2024-08-13 16:04] VITALS: RESP 16
[2024-08-13 16:08] VITALS: BP 156/70; PULSE 61
== END 2024-08-13 16:44 | disposition home or self-care (01) ==
LOC: OR 12:43
PROVIDERS: ATTEND Urology
DX: N40.0 Benign prostatic hyperplasia without lower urinary tract symptoms (principal); I48.91 Unspecified atrial fibrillation; I25.10 Atherosclerotic heart disease of native coronary artery without angina pectoris; K21.9 Gastro-esophageal reflux disease without esophagitis; I10 Essential (primary) hypertension; E78.5 Hyperlipidemia, unspecified; M48.00 Spinal stenosis, site unspecified; Z85.828 Personal history of other malignant neoplasm of skin; Z87.891 Personal history of nicotine dependence; Z80.3 Family history of malignant neoplasm of breast; Z79.02 Long term (current) use of antithrombotics/antiplatelets; Z79.899 Other long term (current) drug therapy
CPT/HCPCS: 52441; L8699; J1100; J0690; J2405; J2003; J3010; J2704

== ENCOUNTER 2024-08-13 23:39 | Emergency (ER) | payer MEDICARE ==
[2024-08-13 23:46] VITALS: TEMP 98.2
[2024-08-14 00:42] VITALS: BP 145/89; PULSE 92; RESP 16
--- NOTE | 2024-08-14 00:49 | ED ---
General Adult HPI - General Chief complaint: Urogenital Stated complaint: Urogenital Time Seen by Provider: 08/13/24 23:51 Source: patient Mode of arrival: ambulatory Limitations: no limitations - History of Present Illness Initial comments: 84-year-old male presenting with chief complaint of inability to urinate. Patient had a UroLift procedure earlier today with Dr. Freeman. He was started on Keflex after the procedure. Patient has been having bleeding from the urethra. States that he is having increasing suprapubic pressure. States that he will get a burning sensation every few minutes and he feels like he has to urinate but he is unable to. He does get a little bit of blood out at that time. No vomiting. No fever. - Related Data Home Medications Medication Instructions Recorded Confirmed Rivaroxaban [Xarelto] 20 mg PO PC-SUPPER 01/15/18 08/13/24 Atorvastatin [Lipitor] 10 mg PO DAILY 01/30/20 08/13/24 Furosemide [Lasix] 20 mg PO DAILY PRN 01/30/20 08/13/24 Candesartan Cilexetil [Atacand] 32 mg PO QAM 04/06/20 08/13/24 Cholecalciferol [Vitamin D3 (25 2,000 unit PO DAILY 04/06/20 08/13/24 Mcg = 1000 Iu)] Multivit-Min/FA/Lycopen/Lutein 1 each PO DAILY 04/06/20 08/13/24 [Centrum Silver Tablet] amLODIPine BESYLATE 10 mg PO QAM 04/06/20 08/13/24 hydrALAZINE HCL [Apresoline] 50 mg PO BID 04/06/20 08/13/24 Propranolol HCl [Propranolol HCl 120 mg PO DAILY 03/01/24 08/13/24 ER] Tamsulosin [Flomax] 0.4 mg PO BID 08/12/24 08/13/24 Previous Rx's Medication Instructions Recorded Cephalexin [Keflex] 500 mg PO Q6HR 1 Days #4 cap 08/13/24 Allergies Allergy/AdvReac Type Severity Reaction Status Date / Time No Known Allergies Allergy Verified 08/13/24 23:41 Review of Systems ROS Statement: Those systems with pertinent positive or pertinent negative responses have been documented in the HPI. ROS Other: All systems not noted in ROS Statement are negative. Past Medical History Past Medical History: Atrial Fibrillation, Coronary Artery Disease (CAD), Cancer, GERD/Reflux, Hearing Disorder / Deafness, Hyperlipidemia, Hypertension, Musculoskeletal Disorder, Prostate Disorder Additional Past Medical History / Comment(s): Skin cancer, recent lesions removed. BPH. Charcot-Mónica Tooth disease (a muscle deterioration), neuropathy in feet, wears bilat.leg braces; Tremors, Vertigo, balance issues, DDD, spinal stenosis. History of Any Multi-Drug Resistant Organisms: None Reported Past Surgical History: Orthopedic Surgery Additional Past Surgical History / Comment(s): Skin cancer exc forehead, nose. Lt Foot bone chip removed(02/12), JEFFERY & Cardioversion x3, colonoscopy, urolift Past Anesthesia/Blood Transfusion Reactions: No Reported Reaction, Family History of Problems w/ Anesthesia Additional Past Anesthesia/Blood Transfusion Reaction / Comment(s): (sister gets agitated, low blood pressure) Past Psychological History: No Psychological Hx Reported Smoking Status: Former smoker Past Alcohol Use History: None Reported Past Drug Use History: None Reported - Past Family History Daughter(s) Family Medical History: Cancer Brother(s) Family Medical History: Cancer Son(s) Family Medical History: Cancer General Exam Limitations: no limitations General appearance: alert, in no apparent distress Head exam: Present: atraumatic, normocephalic, normal inspection Eye exam: Present: normal appearance, EOMI Neck exam: Present: normal inspection. Absent: meningismus Respiratory exam: Absent: respiratory distress Cardiovascular Exam: Present: regular rate Neurological exam: Present: alert, oriented X3 Psychiatric exam: Present: normal affect, normal mood Skin exam: Present: warm, dry Course Vital Signs 08/13/24 08/14/24 23:41 00:40 Temperature 98.2 F Pulse Rate 97 92 Respiratory 18 16 Rate Blood Pressure 177/85 145/89 O2 Sat by Pulse 95 96 Oximetry Medical Decision Making - Medical Decision Making Was pt. sent in by a medical professional or institution (, PA, HOUSE REGISTRY RN, urgent care, hospital, or alf...) When possible be specific @ -No Did you speak to anyone other than the patient for history (EMS, parent, family, police, friend...)? What history was obtained from this source @ -No Did you review nursing and triage notes (agree or disagree)? Why? @ -I reviewed and agree with nursing and triage notes Were old charts reviewed (outside hosp., previous admission, EMS record, old EKG, old radiological studies, urgent care reports/EKG's, alf records)? Report findings @ -No old charts were reviewed Differential Diagnosis (chest pain, altered mental status, abdominal pain women, abdominal pain men, vaginal bleeding, weakness, fever, dyspnea, syncope, headache, dizziness, GI bleed, back pain, seizure, CVA, palpatations, mental health, musculoskeletal)? @ -Differential includes urinary retention, UTI, surgery complication, not an all-inclusive list EKG interpreted by me (3pts min.). @ -As above X-rays interpreted by me (1pt min.). @ -None done CT interpreted by me (1pt min.). @ -None done U/S interpreted by me (1pt. min.). @ -None done What testing was considered but not performed or refused? (CT, X-rays, U/S, labs)? Why? @ -None What meds were considered but not given or refused? Why? @ -None Did you discuss the management of the patient with other professionals (professionals i.e. , PA, HOUSE REGISTRY RN, lab, RT, psych nurse, high school social science teacher, ship runner, teacher, community liaison officer, correctional case records supervisor)? Give summary @ -No Was smoking cessation discussed for >3mins.? @ -No Was critical care preformed (if so, how long)? @ -No Were there social determinants of health that impacted care today? How? (Homelessness, low income, unemployed, alcoholism, drug addiction, transportation, low edu. Level, literacy, decrease access to med. care, half-way, rehab)? @ -No Was there de-escalation of care discussed even if they declined (Discuss DNR or withdrawal of care, Hospice)? DNR status @ -No What co-morbidities impacted this encounter? (DM, HTN, Smoking, COPD, CAD, Cancer, CVA, ARF, Chemo, Hep., AIDS, mental health diagnosis, sleep apnea, morbid obesity)? @ -None Was patient admitted / discharged? Hospital course, mention meds given and route, prescriptions, significant lab abnormalities, going to OR and other pertinent info. @ -84-year-old male presenting with chief complaint of difficulty urinating. Patient had a UroLift today with Dr. Freeman. He has about 1200 seen on bladder scanner. Newell catheter is inserted and patient has adequate urinary output. He is feeling much better. He will contact his urologist office tomorrow to make them aware of this. Educated on Newell catheter care. Continue Keflex. Follow-up with PCP. Report back to ER with any new or worsening symptoms. Discussed return parameters and answered all questions. Patient conveyed verbal understanding and agreed to the plan. I discussed this case in detail with my attending Dr. Maharaj Undiagnosed new problem with uncertain prognosis? @ -No Drug Therapy requiring intensive monitoring for toxicity (Heparin, Nitro, Insulin, Cardizem)? @ -No Were any procedures done? @ -No Diagnosis/symptom? @ -Urinary retention Acute, or Chronic, or Acute on Chronic? @ -Acute Uncomplicated (without systemic symptoms) or Complicated (systemic symptoms)? @ -Uncomplicated Side effects of treatment? @ -No Exacerbation, Progression, or Severe Exacerbation? @ -No Poses a threat to life or bodily function? How? (Chest pain, [place], [place], pneumonia, PE, COPD, DKA, ARF, appy, cholecystitis, CVA, Diverticulitis, Homicidal, Suicidal, threat to staff... and all critical care pts) @ -Low likelihood Disposition Clinical Impression: Urinary retention Disposition: HOME SELF-CARE Condition: Good Instructions (If sedation given, give patient instructions): Urinary Retention in Men (ED) Additional Instructions: Follow-up with PCP and urologist. Report back to ER with any new or worsening symptoms. Is patient prescribed a controlled substance at d/c from ED?: No Referrals: Jimi Valenzuela DO [Primary Care Provider] - 1-2 days Woody Freeman MD [STAFF PHYSICIAN] - 1-2 days Time of Disposition: 00:50
== END 2024-08-14 01:30 | disposition home or self-care (01) ==
LOC: EC 23:39
DX: R33.9 Retention of urine, unspecified (principal); Z87.891 Personal history of nicotine dependence
CPT/HCPCS: 51702; 51798; 99284

== ENCOUNTER 2024-08-14 16:51 | Emergency (ER) | payer MEDICARE ==
--- NOTE | 2024-08-14 17:02 | ED ---
Male Urogenital HPI - General Stated complaint: can't urinate Time Seen by Provider: 08/14/24 17:01 Source: patient, RN notes reviewed, old records reviewed Mode of arrival: ambulatory Limitations: no limitations - History of Present Illness Initial comments: Quick note: 84-year-old male presented to the ER for evaluation of urinary catheter pain. Patient underwent UroLift with Dr. Freeman yesterday. He was seen in our emergency department last night due to pain and hematuria. Newell catheter was placed at that time. Patient states upon discharge he was feeling fine until around 11 AM he started to have penile pain and noticing leakage of urine around of catheter. He does report bag is draining. Patient is taking Keflex. - Related Data Home Medications Medication Instructions Recorded Confirmed Rivaroxaban [Xarelto] 20 mg PO PC-SUPPER 01/15/18 08/13/24 Atorvastatin [Lipitor] 10 mg PO DAILY 01/30/20 08/13/24 Furosemide [Lasix] 20 mg PO DAILY PRN 01/30/20 08/13/24 Candesartan Cilexetil [Atacand] 32 mg PO QAM 04/06/20 08/13/24 Cholecalciferol [Vitamin D3 (25 2,000 unit PO DAILY 04/06/20 08/13/24 Mcg = 1000 Iu)] Multivit-Min/FA/Lycopen/Lutein 1 each PO DAILY 04/06/20 08/13/24 [Centrum Silver Tablet] amLODIPine BESYLATE 10 mg PO QAM 04/06/20 08/13/24 hydrALAZINE HCL [Apresoline] 50 mg PO BID 04/06/20 08/13/24 Propranolol HCl [Propranolol HCl 120 mg PO DAILY 03/01/24 08/13/24 ER] Tamsulosin [Flomax] 0.4 mg PO BID 08/12/24 08/13/24 Previous Rx's Medication Instructions Recorded Cephalexin [Keflex] 500 mg PO Q6HR 1 Days #4 cap 08/13/24 Allergies Allergy/AdvReac Type Severity Reaction Status Date / Time No Known Allergies Allergy Verified 08/14/24 17:18 Review of Systems ROS Statement: Those systems with pertinent positive or pertinent negative responses have been documented in the HPI. ROS Other: All systems not noted in ROS Statement are negative. Past Medical History Past Medical History: Atrial Fibrillation, Coronary Artery Disease (CAD), Cancer, GERD/Reflux, Hearing Disorder / Deafness, Hyperlipidemia, Hypertension, Musculoskeletal Disorder, Prostate Disorder Additional Past Medical History / Comment(s): Skin cancer, recent lesions removed. BPH. Charcot-Mónica Tooth disease (a muscle deterioration), neuropathy in feet, wears bilat.leg braces; Tremors, Vertigo, balance issues, DDD, spinal stenosis. History of Any Multi-Drug Resistant Organisms: None Reported Past Surgical History: Orthopedic Surgery Additional Past Surgical History / Comment(s): Skin cancer exc forehead, nose. Lt Foot bone chip removed(02/12), JEFFERY & Cardioversion x3, colonoscopy, urolift Past Anesthesia/Blood Transfusion Reactions: No Reported Reaction, Family History of Problems w/ Anesthesia Additional Past Anesthesia/Blood Transfusion Reaction / Comment(s): (sister gets agitated, low blood pressure) Past Psychological History: No Psychological Hx Reported Smoking Status: Former smoker Past Alcohol Use History: None Reported Past Drug Use History: None Reported - Past Family History Daughter(s) Family Medical History: Cancer Additional Family Medical History / Comment(s): Breast cancer. Brother(s) Family Medical History: Cancer Additional Family Medical History / Comment(s): Prostate cancer. Son(s) Family Medical History: Cancer Additional Family Medical History / Comment(s): Prostate cancer. General Exam - General Exam Comments Initial Comments: Visual Physical Exam Vital signs reviewed General: Well-appearing, nontoxic, no acute distress. Head: Normocephalic, atraumatic Eyes: PERRLA, EOMI ENT: Airway patent Chest: Nonlabored breathing Skin: No visual rash, normal skin tone Neuro: Alert and oriented 3 Musculoskeletal: No gross abnormalities Course Vital Signs 08/14/24 17:13 Temperature 98.1 F Pulse Rate 51 L Respiratory 16 Rate O2 Sat by Pulse 95 Oximetry Medical Decision Making - Medical Decision Making I performed the quick note portion of this chart. Electronically signed by Adali Monroe PA-C Disposition Clinical Impression: Urinary catheter complication Disposition: HOME SELF-CARE Condition: Stable Instructions (If sedation given, give patient instructions): Newell Catheter Placement and Care (ED) Additional Instructions: Follow-up with urology within the next 3 to 5 days. Continue taking Keflex as prescribed. Take [id number] Tylenol for pain control outpatient. Return to the ER for any new or worsening concerns. Is patient prescribed a controlled substance at d/c from ED?: No Referrals: Jimi Valenzuela DO [Primary Care Provider] - 1-2 days Woody Freeman MD [STAFF PHYSICIAN] - 1-2 days Time of Disposition: 18:42
[2024-08-14 17:18] VITALS: RESP 16; TEMP 98.1
[2024-08-14] MEDS: ACETAMINOPHEN TAB 325 MG TAB PO STA (19:01)
[2024-08-14 19:20] VITALS: BP 127/82; PULSE 59
[2024-08-14 19:48] LABS: Bacteria,Urine Few /hpf; Mucus,Urine Few /hpf; RBC,Urine >182 /hpf (0-5); WBC,Urine >182 /hpf (0-5)
[2024-08-14 19:49] LABS: Appearance,Urine Turbid (Clear); Color,Urine Dark Red
== END 2024-08-14 20:00 | disposition home or self-care (01) ==
LOC: EC 16:51
DX: T83.9XXA Unspecified complication of genitourinary prosthetic device, implant and graft, initial encounter (principal); Z87.891 Personal history of nicotine dependence
CPT/HCPCS: 51702; 81001; 87086; 99283